=== PATIENT | female | born 1995 | race Caucasian/White ===

== ENCOUNTER 2017-06-14 15:59 | Emergency (ER) | payer OTHER ==
[2017-06-14 18:00] LABS: BILIRUBIN,URINE NEGATIVE (NEGATIVE); PH,URINE 6.5 PH (5.0-7.5); UA CHARGE (STRIP ONLY) YES; UR CULTURE IF IND NOT INDICATED
[2017-06-14 19:00] LABS: HCG UR QUAL NEGATIVE
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
--- NOTE | 2017-06-14 19:28 | XRAY Preliminary Report ---
Exam: XR SHOULDER 3 VIEW LT IMPRESSION: Possible AC joint separation. Symptom localization is recommended. [facility] SITE ID: [id number]
--- NOTE | 2017-06-14 19:30 | XRAY Report ---
EXAM: LEFT SHOULDER RADIOGRAPHY EXAM DATE: 06/14/2017 07:23 PM. CLINICAL HISTORY: C/o pain denies injury. COMPARISON: None. TECHNIQUE: 3 views. FINDINGS: Bones: Normal. No fracture or bone lesion. Joints: Slight elevation of clavicle head relative to the acromion may represent an AC joint separati on. Normal coracoclavicular distance. Anatomic glenohumeral relationship. Soft tissues: The visualized hemithorax is unremarkable. No soft tissue swelling. IMPRESSION: Possible AC joint separation. Symptom localization is recommended. [facility] Referring Provider Line: [phone] SITE ID: [id number]
[2017-06-14] MEDS ORDERED: IBUPROFEN 600 MG TABLET PO STA (20:02)
[2017-06-14] MEDS ORDERED: ACETAMINOPHEN 325 MG TABLET PO STA (20:03)
[2017-06-14] MEDS ORDERED: ACETAMINOPHEN 325 MG TABLET PO ONE (20:27)
[2017-06-14] MEDS ORDERED: IBUPROFEN 600 MG TABLET PO ONE (20:27)
[2017-06-14 20:29] VITALS: BP 116/70
== END 2017-06-14 20:28 | disposition home or self-care (01) ==
LOC: ED 15:59
DX: S43.102A Unspecified dislocation of left acromioclavicular joint, initial encounter (principal); S46.012A Strain of muscle(s) and tendon(s) of the rotator cuff of left shoulder, initial encounter; V89.2XXA Person injured in unspecified motor-vehicle accident, traffic, initial encounter; X50.9XXA Other and unspecified overexertion or strenuous movements or postures, initial encounter; E03.9 Hypothyroidism, unspecified
CPT/HCPCS: 73030; 81003; 81025; 99283; 99284; A9270; 81001; 87086

== ENCOUNTER 2017-08-18 13:16 | Emergency (ER) | payer OTHER ==
--- NOTE | 2017-08-18 14:19 | ED Physician Documentation ---
PD HPI URI - Stated complaint Stated Complaint: EAR PX/CONGESTIONS - Chief complaint Chief Complaint: Heent - History obtained from History obtained from: Patient - History of Present Illness Timing - onset: How many days ago (3) Timing duration: Days (3) Timing details: Gradual onset Pain level max: 4 Pain level now: 3 Associated symptoms: Ear pain (Left ear), Nasal congestion, Rhinorrhea, Sore throat, Dry cough. No: Fever, Chills, Dyspnea, NVD Contributing factors: No: Sick contact Improves by: Rest Worsened by: Activity, Breathing Recently seen: Not recently seen Review of Systems Constitutional: denies: Fever, Chills Nose: reports: Rhinorrhea / runny nose, Congestion GI: denies: Vomiting, Diarrhea : denies: Now EGA PD PAST MEDICAL HISTORY - Past Medical History Past Medical History: Yes Endocrine/Autoimmune: HyPOthyroidism Musculoskeletal: None - Past Surgical History Past Surgical History: Yes - Present Medications Home Medications: Ambulatory Orders Medication Instructions Recorded Confirmed Dexamethasone [Decadron] 4 mg PO DAILY #5 tablet 06/14/17 HYDROcod/ACETAM 5/325 [[place] 5/325] 1 tab PO Q6H PRN #15 tablet 06/14/17 Levothyroxine Sodium [Synthroid] 75 mcg PO DAILY 06/14/17 06/14/17 Naproxen 375 mg PO BID #20 tablet 06/14/17 Azithromycin [Zithromax] 0 mg PO DAILY #6 tablet 08/18/17 Cetirizine HCl/Pseudoephedrine 1 each PO BID PRN #30 tab.er.12h 08/18/17 [Zyrtec-D Tablet] - Allergies Allergies/Adverse Reactions: Allergies Allergy/AdvReac Type Severity Reaction Status Date / Time Penicillins Allergy Unknown Verified 06/14/17 16:06 - Social History Does the pt smoke?: No Smoking Status: Never smoker PD ED PE NORMAL - Vitals Vital signs reviewed: Yes - General General: Alert and oriented X 3, No acute distress - HEENT HEENT: Moist mucous membranes, Other (Right tendon membrane is normal. Left tympanic membrane is dull, bulging with purulent fluid present. Loss of landmarks present. Mild posterior pharyngeal erythema without tonsillar exudates. Uvula midline. Normal phonation. No trismus) - Neck Neck: Supple, no meningeal sign, No adenopathy - Cardiac Cardiac: RRR - Respiratory Respiratory: No respiratory distress, Clear bilaterally - Abdomen Abdomen: Soft, Non tender, Non distended - Back Back: No CVA TTP - Derm Derm: Warm and dry, No rash - Neuro Neuro: Alert and oriented X 3 Results - Vitals Vitals: Oxygen O2 Source Room air PD MEDICAL DECISION MAKING - ED course Complexity details: considered differential, d/w patient ED course: Patient is a 21-year-old female presents to the emergency department what appears to be a viral syndrome complicated by left acute otitis media. Will place on antibiotics for home and follow-up with her doctor. She is very well- appearing, nontoxic. No evidence of sepsis or pneumonia. Patient counseled regarding signs and symptoms for which I believe and urgent re-evaluation would be necessary. Patient with good understanding of and agreement to plan and is comfortable going home at this time This document was made in part using voice recognition software. While efforts are made to proofread this document, sound alike and grammatical errors may occur. Departure - Departure Disposition: 01 Home, Self Care Clinical Impression: Viral URI Otitis media Qualifiers: Otitis media type: suppurative Chronicity: acute Laterality: left Recurrence: not specified as recurrent Spontaneous tympanic membrane rupture: without spontaneous rupture Qualified Code(s): H66.002 - Acute suppurative otitis media without spontaneous rupture of ear drum, left ear Condition: Good Instructions: ED Otitis Media Acute Adult, ED Viral Syndrome Follow-Up: your,doctor in 1 week [Other] Prescriptions: Azithromycin [Zithromax] 0 mg PO DAILY #6 tablet Cetirizine HCl/Pseudoephedrine [Zyrtec-D Tablet] 1 each PO BID PRN #30 tab.er.12h PRN Reason: Nasal Congestion Comments: Drink plenty of fluids and rest. Return if you worsen. Discharge Date/Time: 08/18/17 14:27
[2017-08-18 14:28] VITALS: BP 124/78
== END 2017-08-18 14:27 | disposition home or self-care (01) ==
LOC: ED 13:16
DX: J06.9 Acute upper respiratory infection, unspecified (principal); B97.89 Other viral agents as the cause of diseases classified elsewhere; H66.002 Acute suppurative otitis media without spontaneous rupture of ear drum, left ear; E03.9 Hypothyroidism, unspecified
CPT/HCPCS: 99283

== ENCOUNTER 2017-08-22 19:14 | Emergency (ER) | payer OTHER ==
--- NOTE | 2017-08-22 20:36 | ED Physician Documentation ---
PD HPI HEENT - Stated complaint Stated Complaint: HEADACHE,L SIDE JAW PAIN - Chief complaint Chief Complaint: Heent - History obtained from History obtained from: Patient - History of Present Illness Timing - onset: How many days ago (few) Timing - duration: Days Timing - details: Gradual onset, Still present, Waxing and waning Location: Left ear, Other (side of face) Worsens: Swalllowing Associated symptoms: Swollen nodes, Headache. No: Fever, Congestion, Rhinorrhea , Unable to swallow, Facial swelling Similar symptoms before: Has not had sx before Recently seen: Not recently seen Review of Systems Constitutional: denies: Fever, Chills, Myalgias Ears: reports: Ear pain. denies: Drainage/discharge Nose: reports: Rhinorrhea / runny nose. denies: Congestion Throat: denies: Sore throat Respiratory: denies: Cough GI: reports: Nausea. 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 : None HEENT: None Psych: None Musculoskeletal: None Derm: None - Past Surgical History Past Surgical History: Yes - Present Medications Home Medications: Ambulatory Orders Medication Instructions Recorded Confirmed Dexamethasone [Decadron] 4 mg PO DAILY #5 tablet 06/14/17 HYDROcod/ACETAM 5/325 [[place] 5/325] 1 tab PO Q6H PRN #15 tablet 06/14/17 Levothyroxine Sodium [Synthroid] 75 mcg PO DAILY 06/14/17 06/14/17 Naproxen 375 mg PO BID #20 tablet 06/14/17 Azithromycin [Zithromax] 0 mg PO DAILY #6 tablet 08/18/17 Cetirizine HCl/Pseudoephedrine 1 each PO BID PRN #30 tab.er.12h 08/18/17 [Zyrtec-D Tablet] Cephalexin [Keflex] 500 mg PO TID #21 capsule 08/22/17 Dexamethasone [Decadron] 4 mg PO DAILY #5 tablet 08/22/17 HYDROcod/ACETAM 5/325 [[place] 5/325] 1 tab PO Q6H PRN #15 tablet 08/22/17 Naproxen 375 mg PO BID #20 tablet 08/22/17 - Allergies Allergies/Adverse Reactions: Allergies Allergy/AdvReac Type Severity Reaction Status Date / Time Penicillins Allergy Unknown Verified 08/22/17 19:22 - Social History Does the pt smoke?: No Smoking Status: Never smoker Does the pt drink ETOH?: Yes Does the pt have substance abuse?: No - Immunizations Immunizations are current?: Yes - POLST Patient has POLST: No PD ED PE NORMAL - Vitals Vital signs reviewed: Yes - General General: Alert and oriented X 3, Well developed/nourished, Other (appears in pain.) - HEENT HEENT: Pharynx benign. No: Ears normal (right is okay; left with redness.) - Neck Neck: Supple, no meningeal sign, Other (left ant node.) - Cardiac Cardiac: RRR, No murmur - Respiratory Respiratory: Clear bilaterally Results - Vitals Vitals: Oxygen O2 Source Room air PD MEDICAL DECISION MAKING - ED course Complexity details: considered differential (ear infection. no rash nor sores in face/periauricular.), d/w patient Departure - Departure Disposition: 01 Home, Self Care Clinical Impression: Otitis media Qualifiers: Otitis media type: suppurative Chronicity: acute Laterality: left Recurrence: recurrent Spontaneous tympanic membrane rupture: without spontaneous rupture Qualified Code(s): H66.005 - Acute suppurative otitis media without spontaneous rupture of ear drum, recurrent, left ear Headache Qualifiers: Headache type: unspecified Headache chronicity pattern: acute headache Intractability: not intractable Qualified Code(s): R51 - Headache Condition: Stable Record reviewed to determine appropriate education?: Yes Instructions: ED Cephalgia Unspecified, ED Otitis Media Acute Adult Follow-Up: [facility] [Provider Group] Prescriptions: Cephalexin [Keflex] 500 mg PO TID #21 capsule Dexamethasone [Decadron] 4 mg PO DAILY #5 tablet HYDROcod/ACETAM 5/325 [[place] 5/325] 1 tab PO Q6H PRN #15 tablet PRN Reason: Pain Naproxen 375 mg PO BID #20 tablet Comments: The ear infection is still present I presume this given you the left-sided pain and pain down into the jaw. He may be having the migraine type headache or just sinus headache from the illness given you the general headache. I do not get the sense that you have severe process such as meningitis or such. Use Decadron daily for the next 5 days for inflammation. He is a different antibiotic cephalexin 3 times a day for the next week. Add an anti- inflammatory naproxen twice daily and then Tylenol or hydrocodone if needed for worse pain. Recheck if not improving over the next 2-3 days. Discharge Date/Time: 08/22/17 21:08
[2017-08-22] MEDS ORDERED: DEXAMETHASONE 10 MG/ML VIAL PO STA (20:47)
[2017-08-22] MEDS ORDERED: HYDROcod/ACETAM 5/325 MG TABLET PO STA (20:47)
[2017-08-22] MEDS ORDERED: HYDROcod/ACET 5/325 Prepack 6 PO STA (20:47)
[2017-08-22] MEDS ORDERED: cephALEXin 250 MG CAPSULE PO STA (20:47)
[2017-08-22 21:13] VITALS: BP 127/80
== END 2017-08-22 21:08 | disposition home or self-care (01) ==
LOC: ED 19:14
DX: H66.005 Acute suppurative otitis media without spontaneous rupture of ear drum, recurrent, left ear (principal); R51 Headache; G30.9 Alzheimer's disease, unspecified; F02.80 Dementia in other diseases classified elsewhere, unspecified severity, without behavioral disturbance, psychotic disturbance, mood disturbance, and anxiety; E03.9 Hypothyroidism, unspecified
CPT/HCPCS: 99283; A9270

== ENCOUNTER 2017-11-06 22:33 | Emergency (ER) | payer OTHER ==
[2017-11-06] MEDS ORDERED: SODIUM CHLORIDE 0.9% 1,000 ML IV ONE (23:07)
[2017-11-06 23:56] LABS: BILIRUBIN,URINE NEGATIVE (NEGATIVE); GLUCOSE, URINE (UA) NEGATIVE (NEGATIVE); KETONES,URINE (UA) NEGATIVE (NEGATIVE); LEUKOCYTE ESTERASE, URINE NEGATIVE (NEGATIVE); NITRITE,URINE NEGATIVE (NEGATIVE); OCCULT BLOOD,URINE LARGE (NEGATIVE); PH,URINE 6.5 PH (5.0-7.5); PROTEIN,URINE NEGATIVE (NEGATIVE); UROBILINOGEN,URINE 0.2 (NORMAL) E.U./dL (NORMAL)
[2017-11-07 00:05] LABS: CLARITY,URINE CLOUDY (CLEAR)
[2017-11-07 00:08] LABS: BACTERIA,URINE None Seen /HPF (None Seen); HCG UR QUAL NEGATIVE; RBC,URINE TNTC /HPF (0-5); SQUAMOUS EPITHELIAL CELL,UR FEW Squamous (<= Few)
--- NOTE | 2017-11-07 01:06 | ED Physician Documentation ---
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 Her bleeding is heavier than a normal menstrual period, soaking as many as 1 pad every 1-2 hours. She has had few associated blood clots. She is concerned about the possibility of because her last period was extremely light compared to usual. She is sexually active and does not use control. She had an IUD until it was removed last fall. She denies fever, dysuria, nausea or vomiting. Review of Systems Constitutional: denies: Fever Nose: denies: Congestion Cardiac: denies: Chest pain / pressure Respiratory: denies: Dyspnea, Cough GI: denies: Abdominal Pain, Nausea, Vomiting : reports: LMP (1 month ago, extremely light compared to usual.), Vaginal bleeding. 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 : None HEENT: None Psych: None Musculoskeletal: None Derm: None - Past Surgical History Past Surgical History: No - Present Medications Home Medications: Ambulatory Orders Medication Instructions Recorded Confirmed Levothyroxine Sodium [Synthroid] 75 mcg PO DAILY 06/14/17 06/14/17 - Allergies Allergies/Adverse Reactions: Allergies Allergy/AdvReac Type Severity Reaction Status Date / Time Penicillins Allergy Unknown Verified 08/22/17 19:22 - Social History Does the pt smoke?: No Smoking Status: Never smoker Does the pt drink ETOH?: Yes Does the pt have substance abuse?: No - Immunizations Immunizations are current?: Yes - POLST Patient has POLST: No PD ED PE NORMAL - Vitals Vital signs reviewed: Yes (Mild hypertension initially.) - General General: Alert and oriented X 3, Well developed/nourished - Cardiac Cardiac: RRR - Respiratory Respiratory: No respiratory distress, Clear bilaterally - Abdomen Abdomen: Soft, Non tender - Back Back: No CVA TTP - Derm Derm: No rash - Extremities Extremities: No edema, No calf tenderness / cord - Neuro Neuro: Alert and oriented X 3, No motor deficit, Normal speech Results - Vitals Vitals: Vital Signs - 24 hr 11/06/17 11/07/17 22:38 01:14 Temperature 36.1 C L Heart Rate 77 72 Respiratory 16 16 Rate Blood Pressure 138/85 H 129/74 O2 Saturation 99 99 Oxygen O2 Source Room air - Labs Labs: Laboratory Tests 11/06/17 11/06/17 23:52 23:52 Urine Color YELLOW Urine Clarity CLOUDY Urine pH 6.5 Ur Specific [place] 1.025 1.025 Urine Protein NEGATIVE Urine Glucose (UA) NEGATIVE Urine Ketones NEGATIVE Urine Occult Blood LARGE H Urine Nitrite NEGATIVE Urine Bilirubin NEGATIVE Urine Urobilinogen 0.2 (NORMAL) Ur Leukocyte Esterase NEGATIVE Urine RBC TNTC H Urine WBC 0-3 Ur Squamous Epith Cells FEW Squamous Urine Bacteria None Seen Ur Microscopic Review INDICATED Urine Culture Comments NOT INDICATED Urine HCG, Qual NEGATIVE PD MEDICAL DECISION MAKING - ED course Complexity details: reviewed results, re-evaluated patient, considered differential, d/w patient ED course: The patient's presentation is most consistent with a heavy normal menstrual period. The unlikely that she has an ectopic . I discussed with her the results of the test, symptomatic treatment and outpatient follow-up, as well as potentially worrisome signs or symptoms that should prompt reevaluation in the emergency department. Departure - Departure Disposition: 01 Home, Self Care Clinical Impression: Heavy menstrual bleeding Qualifiers: Menorrahagia type: with regular cycle Qualified Code(s): N92.0 - Excessive and frequent menstruation with regular cycle Instructions: ED Bleeding Menstrual Heavy Follow-Up: [facility] [Provider Group] Comments: You can use Tylenol or ibuprofen if needed for menstrual cramping pain. Drink plenty of fluids. Follow up with your primary physician within 2 weeks. Call to schedule appointment. Return to the emergency department if you develop increasing pain, increasing bleeding, or otherwise worsening symptoms. Discharge Date/Time: 11/07/17 01:15
[2017-11-07 01:15] VITALS: BP 129/74
== END 2017-11-07 01:15 | disposition home or self-care (01) ==
LOC: ED 22:33
DX: N92.0 Excessive and frequent menstruation with regular cycle (principal)
CPT/HCPCS: 81001; 81003; 81025; 87086; 96360; 99283

== ENCOUNTER 2018-02-16 11:36 | Emergency (ER) | payer OTHER ==
--- NOTE | 2018-02-16 11:52 | ED Physician Documentation ---
PD HPI FEMALE - Stated complaint Stated Complaint: FEM - Chief complaint Chief Complaint: UTI - History obtained from History obtained from: Patient - History of Present Illness Timing - onset: Yesterday Timing - duration: Days (2) Timing - details: Abrupt onset, Still present Associated symptoms: Dysuria, Urinary frequency. No: Fever, Vaginal discharge, Genital sore/lesion, Hematuria Contributing factors: Sexually active, Other (Novaring). No: Exposed to STD Similar symptoms before: Diagnosis (UTI) Recently seen: Not recently seen Review of Systems Constitutional: denies: Fever, Chills, Myalgias Nose: denies: Rhinorrhea / runny nose, Congestion Throat: denies: Sore throat Respiratory: denies: Cough : reports: Dysuria, Frequency, Irregular menses (due to Novaring). denies: Hematuria, Discharge Skin: denies: Rash PD PAST MEDICAL HISTORY - Past Medical History Cardiovascular: None Respiratory: None Endocrine/Autoimmune: HyPOthyroidism GI: None [employer] SALES: None : None HEENT: None Psych: None Musculoskeletal: None Derm: None - Past Surgical History Past Surgical History: No - Present Medications Home Medications: Ambulatory Orders Medication Instructions Recorded Confirmed Levothyroxine Sodium [Synthroid] 75 mcg PO DAILY 06/14/17 06/14/17 Phenazopyridine [Pyridium] 100 mg PO TID PRN #15 tablet 02/16/18 Sulfamethox/Trimeth 800/160 1 each PO BID #14 tablet 02/16/18 [Bactrim Ds 800/160] - Allergies Allergies/Adverse Reactions: Allergies Allergy/AdvReac Type Severity Reaction Status Date / Time Penicillins Allergy Unknown Verified 08/22/17 19:22 - Social History Does the pt smoke?: No Smoking Status: Never smoker Does the pt drink ETOH?: Yes Does the pt have substance abuse?: No - Immunizations Immunizations are current?: Yes - POLST Patient has POLST: No PD ED PE NORMAL - Vitals Vital signs reviewed: Yes - General General: Alert and oriented X 3, No acute distress, Well developed/nourished - HEENT HEENT: Pharynx benign - Neck Neck: Supple, no meningeal sign, No adenopathy - Abdomen Abdomen: Soft, Non tender - Female Female : Deferred (talked with her about possible vaginitis giving symptoms, and she prefers treating as UTI initially, pending culture results and see if improved with abx. ) - Back Back: No CVA TTP Results - Vitals Vitals: Vital Signs - 24 hr 02/16/18 02/16/18 11:43 12:48 Temperature 36.5 C 36.6 C Heart Rate 87 91 Respiratory 18 18 Rate Blood Pressure 128/65 122/80 O2 Saturation 96 97 Oxygen O2 Source Room air - Labs Labs: Laboratory Tests 02/16/18 11:51 Urine Color YELLOW Urine Clarity HAZY Urine pH 6.0 Ur Specific [place] 1.025 Urine Protein NEGATIVE Urine Glucose (UA) NEGATIVE Urine Ketones NEGATIVE Urine Occult Blood SMALL H Urine Nitrite NEGATIVE Urine Bilirubin NEGATIVE Urine Urobilinogen 0.2 (NORMAL) Ur Leukocyte Esterase TRACE H Urine RBC 0-5 Urine WBC 11-25 H Ur Squamous Epith Cells FEW Squamous Urine Bacteria Few Urine Mucus Moderate Strands Ur Microscopic Review INDICATED Urine Culture Comments INDICATED Urine HCG, Qual NEGATIVE PD MEDICAL DECISION MAKING - ED course Complexity details: reviewed results (suspicious for UTI but not overtly convincing. Discussed possible pelvic exam with patient and will treat as UTI pending cultures. ), considered differential, d/w patient - Sepsis Event Vital Signs: Vital Signs - 24 hr 02/16/18 02/16/18 11:43 12:48 Temperature 36.5 C 36.6 C Heart Rate 87 91 Respiratory 18 18 Rate Blood Pressure 128/65 122/80 O2 Saturation 96 97 Oxygen O2 Source Room air Departure - Departure Disposition: 01 Home, Self Care Clinical Impression: Dysuria Urinary tract infection Qualifiers: Urinary tract infection type: acute cystitis Hematuria presence: without hematuria Qualified Code(s): N30.00 - Acute cystitis without hematuria Condition: Stable Record reviewed to determine appropriate education?: Yes Instructions: ED UTI Cystitis Female Follow-Up: DIONICIO GALLO PA-C [Primary Care Provider] - Prescriptions: Phenazopyridine [Pyridium] 100 mg PO TID PRN #15 tablet PRN Reason: Pain Sulfamethox/Trimeth 800/160 [Bactrim Ds 800/160] 1 each PO BID #14 tablet Comments: Drink lots of fluids. Naproxen or ibuprofen if needed for pain and inflammation. Add Tylenol if needed for discomfort. Phenazopyridine will help with the discomfort of urination (will turn her urine a little orange colored so not to worry). Bactrim antibiotic twice daily for a week for presumed bladder infection. Recheck if not improving over the next 2-3 days or if not fully resolved by the week. Other potential causes can be vaginitis. Discharge Date/Time: 02/16/18 13:00
[2018-02-16 12:06] LABS: BILIRUBIN,URINE NEGATIVE (NEGATIVE); GLUCOSE, URINE (UA) NEGATIVE (NEGATIVE); KETONES,URINE (UA) NEGATIVE (NEGATIVE); LEUKOCYTE ESTERASE, URINE TRACE (NEGATIVE); NITRITE,URINE NEGATIVE (NEGATIVE); OCCULT BLOOD,URINE SMALL (NEGATIVE); PROTEIN,URINE NEGATIVE (NEGATIVE); UROBILINOGEN,URINE 0.2 (NORMAL) E.U./dL (NORMAL)
[2018-02-16 12:16] LABS: CLARITY,URINE HAZY (CLEAR); HCG UR QUAL NEGATIVE
[2018-02-16] MEDS ORDERED: IBUPROFEN 600 MG TABLET PO STA (12:17)
[2018-02-16] MEDS ORDERED: PHENAZOPYRIDINE 100 MG TABLET PO STA (12:17)
[2018-02-16 12:31] LABS: BACTERIA,URINE Few /HPF (None Seen); MUCUS,URINE Moderate Strands; RBC,URINE 0-5 /HPF (0-5); SQUAMOUS EPITHELIAL CELL,UR FEW Squamous (<= Few)
[2018-02-16 12:49] VITALS: BP 122/80
== END 2018-02-16 13:00 | disposition home or self-care (01) ==
LOC: ED 11:36
DX: N30.00 Acute cystitis without hematuria (principal); E03.9 Hypothyroidism, unspecified
CPT/HCPCS: 81001; 81025; 87086; 87181; 99283; A9270; 81003

== ENCOUNTER 2019-12-30 00:43 | Emergency (ER) | payer OTHER ==
--- NOTE | 2019-12-30 00:56 | ED Physician Documentation ---
PD HPI FEMALE - Stated complaint Stated Complaint: F - Chief complaint Chief Complaint: UTI - History obtained from History obtained from: Patient - History of Present Illness Timing - onset: How many days ago (2) Timing - duration: Days (2) Timing - details: Gradual onset, Still present Associated symptoms: Dysuria, Urinary frequency. No: Fever, Pelvic pain, Vaginal bleeding, Vaginal discharge, Genital sore/lesion, Hematuria Contributing factors: No: , Exposed to STD Similar symptoms before: Diagnosis (UTI) Recently seen: Not recently seen Review of Systems Constitutional: denies: Fever, Chills GI: denies: Nausea, Vomiting : reports: Dysuria, Frequency, LMP (just ending). denies: Incontinent, Discharge, Vaginal bleeding, Missed period Skin: denies: Rash, Lesions PD PAST MEDICAL HISTORY - Past Medical History Cardiovascular: None Respiratory: None Endocrine/Autoimmune: HyPOthyroidism GI: None DIE TESTER: None : None HEENT: None Psych: None Musculoskeletal: None Derm: None - Past Surgical History Past Surgical History: No - Present Medications Home Medications: Ambulatory Orders Medication Instructions Recorded Confirmed Levothyroxine Sodium [Synthroid] 75 mcg PO DAILY 06/14/17 06/14/17 Phenazopyridine [Pyridium] 100 mg PO TID PRN #15 tablet 02/16/18 Sulfamethox/Trimeth 800/160 1 each PO BID #14 tablet 02/16/18 [Bactrim Ds 800/160] Naproxen 375 mg PO BID #15 tablet 12/30/19 Phenazopyridine HCl [Pyridium] 100 mg PO TID PRN #15 tablet 12/30/19 Sulfamethox/Trimeth 800/160 1 each PO BID #10 tablet 12/30/19 [Bactrim Ds 800/160] - Allergies Allergies/Adverse Reactions: Allergies Allergy/AdvReac Type Severity Reaction Status Date / Time Penicillins Allergy Unknown Verified 12/30/19 00:54 - Social History Does the pt smoke?: No Smoking Status: Never smoker Does the pt drink ETOH?: Yes Does the pt have substance abuse?: No - Immunizations Immunizations are current?: Yes - POLST Patient has POLST: No PD ED PE NORMAL - Vitals Vital signs reviewed: Yes - General General: Alert and oriented X 3, No acute distress, Well developed/nourished - Abdomen Abdomen: Soft, Non tender - Female Female : Home Health Clinical Liaison present (nurse Олег), Other (some mild menstrual blood in vault. No vaginal irritation nor discharge. Introitus and periurethral area normal appearance. ) - Rectal Rectal: Deferred - Back Back: No CVA TTP Results - Vitals Vitals: Vital Signs - 24 hr 12/30/19 12/30/19 00:45 01:54 Temperature 35.5 C L Heart Rate 61 73 Respiratory 16 18 Rate Blood Pressure 126/72 128/72 O2 Saturation 99 98 Oxygen O2 Source Room air - Labs Labs: Laboratory Tests 12/30/19 12/30/19 00:52 00:52 Urine Color YELLOW Urine Clarity CLEAR Urine pH 6.5 Ur Specific [place] >=1.030 H >=1.030 H Urine Protein TRACE Urine Glucose (UA) NEGATIVE Urine Ketones NEGATIVE Urine Occult Blood NEGATIVE Urine Nitrite NEGATIVE Urine Bilirubin NEGATIVE Urine Urobilinogen 0.2 (NORMAL) Ur Leukocyte Esterase NEGATIVE Ur Microscopic Review NOT INDICATED Urine Culture Comments NOT INDICATED Urine HCG, Qual NEGATIVE PD MEDICAL DECISION MAKING - ED course Complexity details: re-evaluated patient (given her symptoms sounding like UTI, and normal appearing pelvic exam, will treat empirically for UTI pending the PCR tests. ), considered differential (Sounds like UTI. However the UA was very normal. Consider then vaginitis or interstitial cystitis. Does not have abd pain nor tenderness, so unlikely ovarian/etc. ), d/w patient Departure - Departure Disposition: 01 Home, Self Care Clinical Impression: Dysuria Condition: Stable Record reviewed to determine appropriate education?: Yes Instructions: ED Urethritis Infec Vs Inflam Fem Follow-Up: [facility] [Provider Group] Prescriptions: Sulfamethox/Trimeth 800/160 [Bactrim Ds 800/160] 1 each PO BID #10 tablet Naproxen 375 mg PO BID #15 tablet Phenazopyridine HCl [Pyridium] 100 mg PO TID PRN #15 tablet PRN Reason: Abdominal Pain Comments: Your urine test appears normal though that does not exclude a urethritis/cystitis (urinary tract infection). Your vaginal exam appears normal as well. We did do some culture swabs that would look for signs of bacterial vaginitis or other vaginal infection. These will result in a day or 2 and will call you if positive as that would direct and need for changing antibiotics. Otherwise we will treat with medication to numb the bladder and urethra to decrease symptoms as well as anti-inflammatory and antibiotic. This would cover inflammatory and infectious causes for the urinary tract infection. Recheck if not improved over the next 2 to 3 days and return sooner if worsening. Discharge Date/Time: 12/30/19 02:01
[2019-12-30 00:59] LABS: BILIRUBIN,URINE NEGATIVE (NEGATIVE); GLUCOSE, URINE (UA) NEGATIVE (NEGATIVE); KETONES,URINE (UA) NEGATIVE (NEGATIVE); LEUKOCYTE ESTERASE, URINE NEGATIVE (NEGATIVE); NITRITE,URINE NEGATIVE (NEGATIVE); OCCULT BLOOD,URINE NEGATIVE (NEGATIVE); PH,URINE 6.5 PH (5.0-7.5); PROTEIN,URINE TRACE mg/dL (NEGATIVE); UROBILINOGEN,URINE 0.2 (NORMAL) E.U./dL (NORMAL)
[2019-12-30 01:00] LABS: CLARITY,URINE CLEAR (CLEAR)
[2019-12-30 01:02] LABS: HCG UR QUAL NEGATIVE
[2019-12-30] MEDS ORDERED: PHENAZOPYRIDINE 100 MG TABLET PO STA (01:43)
[2019-12-30] MEDS ORDERED: SULFAMETH/TRIMETH DS 800/160 MG TABLET PO STA (01:43)
[2019-12-30 01:55] VITALS: BP 128/72
[2019-12-30 03:40] LABS: CANDIDA GROUP DNA NEGATIVE (NEGATIVE); CANDIDA KRUSEI DNA NEGATIVE (NEGATIVE); TRICHOMONAS VAGINALIS DNA NEGATIVE (NEGATIVE)
[2019-12-30 21:34] LABS: TRICHOMONAS VAGINALIS DNA NEGATIVE (NEGATIVE)
== END 2019-12-30 02:01 | disposition home or self-care (01) ==
LOC: ED 00:43
DX: R30.0 Dysuria (principal); R35.0 Frequency of micturition
CPT/HCPCS: 81003; 81025; 87481; 87491; 87591; 87661; 87801; 99283; A9270; 81001; 87086

== ENCOUNTER 2020-02-21 22:07 | Emergency (ER) | payer OTHER ==
--- NOTE | 2020-02-21 22:49 | ED Physician Documentation ---
History of Present Illness - Stated complaint Stated Complaint: DIZZINESS,DISORIENTATION,NAUSEA - Chief complaint Chief Complaint: Neuro - History obtained from History obtained from: Patient - History of Present Illness Timing: Today Pain level max: 0 Pain level now: 0 Improved by: rest, lying down Worsened by: standing - Additonal information Additional information: c/o "on and off dizziness all day" with episodic lightheadedness, visual changes, "brain fog", head "pressure". She denies meredith headache; these episodes have been associated with standing up after having been seated or lying down. Review of Systems Constitutional: denies: Fever, Chills, Myalgias, Fatigue, Sweats Eyes: reports: Other (episodes of difficulty focusing). denies: Loss of vision, Decreased vision, Photophobia Cardiac: reports: Reviewed and negative Respiratory: reports: Reviewed and negative GI: reports: Reviewed and negative : denies: Dysuria, Frequency, Now EGA Neurologic: reports: Generalized weakness. denies: Focal weakness, Numbness, Headache PD PAST MEDICAL HISTORY - Past Medical History Cardiovascular: None Respiratory: None Endocrine/Autoimmune: HyPOthyroidism GI: None NECKTIE TURNER: None : None HEENT: None Psych: None Musculoskeletal: None Derm: None - Past Surgical History Past Surgical History: No - Present Medications Home Medications: Ambulatory Orders Medication Instructions Recorded Confirmed Levothyroxine Sodium [Synthroid] 75 mcg PO DAILY 06/14/17 06/14/17 Phenazopyridine [Pyridium] 100 mg PO TID PRN #15 tablet 02/16/18 Sulfamethox/Trimeth 800/160 1 each PO BID #14 tablet 02/16/18 [Bactrim Ds 800/160] Naproxen 375 mg PO BID #15 tablet 12/30/19 Phenazopyridine HCl [Pyridium] 100 mg PO TID PRN #15 tablet 12/30/19 Sulfamethox/Trimeth 800/160 1 each PO BID #10 tablet 12/30/19 [Bactrim Ds 800/160] Levothyroxine Sodium [Synthroid] 50 mcg PO DAILY #30 tablet 02/22/20 - Allergies Allergies/Adverse Reactions: Allergies Allergy/AdvReac Type Severity Reaction Status Date / Time Penicillins Allergy Unknown Verified 02/21/20 22:12 - Social History Does the pt smoke?: No Smoking Status: Never smoker Does the pt drink ETOH?: Yes Does the pt have substance abuse?: No - Immunizations Immunizations are current?: Yes - POLST Patient has POLST: No PD ED PE NORMAL - Vitals Vital signs reviewed: Yes - General General: Alert and oriented X 3, No acute distress, Well developed/nourished - HEENT HEENT: PERRL, EOMI, Moist mucous membranes - Neck Neck: Supple, no meningeal sign - Cardiac Cardiac: RRR, No murmur, No gallop, No rub - Respiratory Respiratory: No respiratory distress, Clear bilaterally - Abdomen Abdomen: Soft, Non tender - Back Back: No CVA TTP - Derm Derm: Normal color, Warm and dry - Neuro Neuro: Alert and oriented X 3, 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, No motor deficit, No sensory def icit, Normal speech Eye Opening: Spontaneous Motor: Obeys Commands Verbal: Oriented GCS Score: 15 Results - Vitals Vitals: Vital Signs - 24 hr 02/21/20 02/22/20 02/22/20 22:12 00:30 01:43 Temperature 37.0 C Heart Rate 82 73 Heart Rate [ 80 Sitting] Heart Rate [ 83 Standing] Heart Rate [ 75 Supine] Respiratory 16 14 Rate Blood Pressure 126/73 122/69 Blood Pressure 121/79 [Sitting] Blood Pressure 112/90 H [Standing] Blood Pressure 116/71 [Supine] O2 Saturation 98 99 02/22/20 02:05 Temperature 36.7 C Heart Rate 75 Heart Rate [ Sitting] Heart Rate [ Standing] Heart Rate [ Supine] Respiratory 14 Rate Blood Pressure 128/81 H Blood Pressure [Sitting] Blood Pressure [Standing] Blood Pressure [Supine] O2 Saturation 100 Oxygen O2 Source Room air - Labs Labs: Laboratory Tests 02/21/20 02/21/20 02/21/20 23:15 23:15 23:15 WBC 10.5 RBC 3.77 L Hgb 10.6 L Hct 33.6 L MCV 89.1 MCH 28.1 MCHC 31.5 L RDW 14.0 Plt Count 309 MPV 10.9 H Neut # (Auto) 6.4 Lymph # (Auto) 2.8 Sharp # (Auto) 0.8 Eos # (Auto) 0.4 Baso # (Auto) 0.1 Absolute Nucleated RBC 0.00 Nucleated RBC % 0.0 Sodium 137 Potassium 3.7 Chloride 106 Carbon Dioxide 25 Anion Gap 6.0 BUN 19 Creatinine 0.5 Estimated GFR (MDRD) 150 Glucose 106 H Calcium 8.8 Total Bilirubin 0.5 AST 18 ALT 26 Alkaline Phosphatase 65 Total Protein 7.3 Albumin 4.0 Globulin 3.3 Albumin/Globulin Ratio 1.2 Lipase 34 TSH 12.69 H Urine Color Urine Clarity Urine pH Ur Specific [place] Urine Protein Urine Glucose (UA) Urine Ketones Urine Occult Blood Urine Nitrite Urine Bilirubin Urine Urobilinogen Ur Leukocyte Esterase Urine RBC Urine WBC Ur Squamous Epith Cells Urine Bacteria Ur Microscopic Review Urine Culture Comments Urine HCG, Qual 02/22/20 01:00 WBC RBC Hgb Hct MCV MCH MCHC RDW Plt Count MPV Neut # (Auto) Lymph # (Auto) Sharp # (Auto) Eos # (Auto) Baso # (Auto) Absolute Nucleated RBC Nucleated RBC % Sodium Potassium Chloride Carbon Dioxide Anion Gap BUN Creatinine Estimated GFR (MDRD) Glucose Calcium Total Bilirubin AST ALT Alkaline Phosphatase Total Protein Albumin Globulin Albumin/Globulin Ratio Lipase TSH Urine Color YELLOW Urine Clarity CLEAR Urine pH 7.0 Ur Specific [place] 1.015 Urine Protein NEGATIVE Urine Glucose (UA) NEGATIVE Urine Ketones NEGATIVE Urine Occult Blood LARGE H Urine Nitrite NEGATIVE Urine Bilirubin NEGATIVE Urine Urobilinogen 0.2 (NORMAL) Ur Leukocyte Esterase NEGATIVE Urine RBC TNTC H Urine WBC 0-3 Ur Squamous Epith Cells RARE Squamous Urine Bacteria None Seen Ur Microscopic Review INDICATED Urine Culture Comments NOT INDICATED Urine HCG, Qual NEGATIVE PD MEDICAL DECISION MAKING - ED course Complexity details: reviewed results, re-evaluated patient, considered differential, d/w patient Departure - Departure Disposition: 01 Home, Self Care Clinical Impression: Dizziness, Hypothyroidism Condition: Good Instructions: ED Dizziness UKO, ED Hypothyroidism, ED Near Syncope Unkn Follow-Up: [facility] [Provider Group] Prescriptions: Levothyroxine Sodium [Synthroid] 50 mcg PO DAILY #30 tablet Discharge Date/Time: 02/22/20 02:07
[2020-02-21] MEDS ORDERED: SODIUM CHLORIDE 0.9% 1,000 ML IV STA (23:08)
[2020-02-21 23:26] LABS: BASOPHILS # (AUTO) 0.1 10^3/uL (0.0-0.1); BASOPHILS % (AUTO) 0.9 %; EOSINOPHILS # (AUTO) 0.4 10^3/uL (0.0-0.7); EOSINOPHILS % (AUTO) 3.4 %; HGB - HEMOGLOBIN 10.6 g/dL (12.0-16.0); LYMPHOCYTES # (AUTO) 2.8 10^3/uL (1.5-3.5); LYMPHOCYTES % (AUTO) 27.1 %; MEAN CORPUSCULAR HEMOGLOBIN 28.1 pg (27.0-31.0); MEAN CORPUSCULAR HGB CONC 31.5 g/dL (32.0-36.0); MEAN CORPUSCULAR VOLUME 89.1 fL (81.0-99.0); MEAN PLATELET VOLUME 10.9 fL (7.9-10.8); MONOCYTES # (AUTO) 0.8 10^3/uL (0.0-1.0); MONOCYTES % (AUTO) 7.4 %; NEUTROPHILS # (AUTO) 6.4 10^3/uL (1.5-6.6); NEUTROPHILS % (AUTO) 60.8 %; PLT - PLATELET COUNT 309 10^3/uL (130-450); RED BLOOD COUNT 3.77 10^6/uL (4.20-5.40); WHITE BLOOD COUNT 10.5 x10^3/uL (4.8-10.8)
[2020-02-21 23:39] LABS: ALBUMIN/GLOBULIN RATIO 1.2 (1.0-2.2); BILIRUBIN,TOTAL 0.5 mg/dL (0.2-1.0); CALCIUM 8.8 mg/dL (8.5-10.3); CREATININE 0.5 mg/dL (0.4-1.0); TOTAL PROTEIN 7.3 g/dL (6.7-8.2)
[2020-02-22 01:32] LABS: BILIRUBIN,URINE NEGATIVE (NEGATIVE); GLUCOSE, URINE (UA) NEGATIVE (NEGATIVE); KETONES,URINE (UA) NEGATIVE (NEGATIVE); LEUKOCYTE ESTERASE, URINE NEGATIVE (NEGATIVE); NITRITE,URINE NEGATIVE (NEGATIVE); OCCULT BLOOD,URINE LARGE (NEGATIVE); PROTEIN,URINE NEGATIVE (NEGATIVE); UROBILINOGEN,URINE 0.2 (NORMAL) E.U./dL (NORMAL)
[2020-02-22 01:44] LABS: BACTERIA,URINE None Seen /HPF (None Seen); CLARITY,URINE CLEAR (CLEAR); HCG UR QUAL NEGATIVE; RBC,URINE TNTC /HPF (0-5); SQUAMOUS EPITHELIAL CELL,UR RARE Squamous (<= Few)
[2020-02-22 02:06] VITALS: BP 128/81
== END 2020-02-22 02:07 | disposition home or self-care (01) ==
LOC: ED 22:07
DX: R42 Dizziness and giddiness (principal); E03.9 Hypothyroidism, unspecified
CPT/HCPCS: 36415; 80053; 81001; 81003; 81025; 83690; 84443; 85025; 87086; 96360; 99284

== ENCOUNTER 2024-03-01 12:16 | Outpatient (CLI) | payer OTHER ==
[2024-03-01 12:52] LABS: MEAN CORPUSCULAR HEMOGLOBIN 27.2 pg (27.0-31.0); MEAN CORPUSCULAR HGB CONC 32.4 g/dL (32.0-36.0); MEAN CORPUSCULAR VOLUME 84.2 fL (81.0-99.0); MEAN PLATELET VOLUME 11.4 fL (7.9-10.8); RED BLOOD COUNT 4.04 10^6/uL (4.20-5.40); RED CELL DISTRIBUTION WIDTH 14.5 % (12.0-15.0); WHITE BLOOD COUNT 11.6 x10^3/uL (4.8-10.8)
[2024-03-01 13:03] LABS: CREATININE,URINE 114.5 mg/dL; PROTEIN/CREATININE RATIO,URINE 0.2 (<=0.2)
[2024-03-01 13:03] LABS: ALBUMIN 3.5 g/dL (3.2-5.5); ALBUMIN/GLOBULIN RATIO 1.2 (1.0-2.2); BILIRUBIN,TOTAL 0.2 mg/dL (0.2-1.0); CALCIUM 8.8 mg/dL (8.5-10.3); CREATININE 0.5 mg/dL (0.6-1.3); POTASSIUM 3.9 mmol/L (3.5-4.5); TOTAL PROTEIN 6.4 g/dL (6.4-8.9)
[2024-03-01 13:21] LABS: THYROID STIMULATING HORMONE 1.99 uIU/mL (0.34-5.60)
== END 2024-03-01 12:17 | disposition home or self-care (01) ==
LOC: LAB 12:16
PROVIDERS: ATTEND Obstetrics & Gynecology
DX: O09.892 Supervision of other high risk pregnancies, second trimester (principal); O99.282 Endocrine, nutritional and metabolic diseases complicating pregnancy, second trimester; E06.3 Autoimmune thyroiditis
CPT/HCPCS: 36415; 80053; 82105; 82570; 84156; 84439; 84443; 85027

== ENCOUNTER 2024-06-13 19:54 | Inpatient (IN) ==
[2024-06-13] MEDS ORDERED: LACTATED RINGERS 1,000 ML ONE (19:59)
[2024-06-13] MEDS ORDERED: lidocaine 1% 20 ML MDV ID PRN (20:01)
[2024-06-13] MEDS ORDERED: TRANEXAMIC ACID IN NACL 1,000 MG/100 ML BAG IV PRN (20:01)
[2024-06-13] MEDS ORDERED: TERBUTALINE 1 MG/ML VIAL SUBQ PRN (20:01)
[2024-06-13] MEDS ORDERED: miSOPROStoL 200 MCG TABLET BC PRN (20:01)
[2024-06-13] MEDS ORDERED: SODIUM CHLORIDE FLUSH 0.9% 10 ML SYRINGE IVP PRN ×2 (20:01→21:58)
[2024-06-13] MEDS ORDERED: NIFEdipine 10 MG CAPSULE PO PRN (20:01)
[2024-06-13] MEDS ORDERED: LABETALOL 20 MG/4 ML SYRINGE IVP PRN ×3 (20:01)
[2024-06-13] MEDS ORDERED: miSOPROStoL 200 MCG TABLET PR PRN (20:01)
[2024-06-13] MEDS ORDERED: fentaNYL 100 MCG/2 ML VIAL IVP PRN (20:01)
[2024-06-13] MEDS ORDERED: OXYTOCIN 10 UNIT/ML VIAL IM PRN (20:01)
[2024-06-13] MEDS ORDERED: METHYLERGONOVINE 0.2 MG/ML VIAL IM PRN (20:01)
[2024-06-13] MEDS ORDERED: OXYTOCIN/SODIUM CHLORIDE 500 ML IV PRN (20:01)
[2024-06-13] MEDS ORDERED: CALCIUM CARBONATE CHEW 500 MG TABLET PO PRN (20:01)
[2024-06-13] MEDS ORDERED: hydrALAZINE INJ 20 MG/ML VIAL IVP PRN (20:01)
[2024-06-13 20:42] LABS: BASOPHILS % (AUTO) 0.3 %; EOSINOPHILS # (AUTO) 0.2 10^3/uL (0.0-0.7); EOSINOPHILS % (AUTO) 1.7 %; HCT - HEMATOCRIT 34.1 % (37.0-47.0); HGB - HEMOGLOBIN 10.9 g/dL (12.0-16.0); LYMPHOCYTES # (AUTO) 2.5 10^3/uL (1.5-3.5); LYMPHOCYTES % (AUTO) 19.3 %; MEAN CORPUSCULAR HEMOGLOBIN 26.5 pg (27.0-31.0); MEAN CORPUSCULAR VOLUME 82.8 fL (81.0-99.0); MEAN PLATELET VOLUME 12.2 fL (7.9-10.8); MONOCYTES # (AUTO) 0.8 10^3/uL (0.0-1.0); NEUTROPHILS # (AUTO) 9.4 10^3/uL (1.5-6.6); NEUTROPHILS % (AUTO) 71.6 %; PLT - PLATELET COUNT 219 10^3/uL (130-450); RED BLOOD COUNT 4.12 10^6/uL (4.20-5.40); RED CELL DISTRIBUTION WIDTH 15.9 % (12.0-15.0); WHITE BLOOD COUNT 13.1 x10^3/uL (4.8-10.8)
[2024-06-13 20:52] LABS: ALBUMIN 3.2 g/dL (3.2-5.5); BILIRUBIN,TOTAL 0.2 mg/dL (0.2-1.0); CALCIUM 8.9 mg/dL (8.5-10.3); CREATININE 0.6 mg/dL (0.6-1.3); POTASSIUM 3.8 mmol/L (3.5-4.5); TOTAL PROTEIN 6.4 g/dL (6.4-8.9)
--- NOTE | 2024-06-13 21:52 | ANESTHESIA POST OP EVALUATION ---
Anesthesia Post Eval Post Anesthesia Eval Vitals: See PACU documentation CV Function Including HR & BP: Stable Pain Control: Satisfactory Nausea & Vomiting: Negative Mental Status: Baseline Respiratory Status: Airway Patent Hydration Status: Satisfactory Anesthesia Complications: None
[2024-06-13] MEDS ORDERED: ZOLPIDEM 5 MG TABLET PO PRN (21:57)
[2024-06-13] MEDS ORDERED: ACETAMINOPHEN 325 MG TABLET PO PRN (21:58)
[2024-06-13] MEDS ORDERED: INSULIN LISPRO 300 UNIT/3 ML PEN SUBQ SCH (22:00)
--- NOTE | 2024-06-13 22:03 | HISTORY & PHYSICAL EXAMINATION ---
Admit History Visit Reason Visit Reason: Other (labor induction) : 1 Care: positive [facility] Risk/History: positive Labor induction and High risk Complications This : positive Gestational diabetes and Pre- eclampsia Smoking Status: Never smoker Other Maternal History Other Maternal History: Patient is admitted for labor induction 37w0d by LMP c/w 9 week US. WILDA 07/01. diabetes with significant insulin resistance. now on over 100 units of insulin daily. BP elevated with MFM and then urine protein over 300. no second elevated bp at our clinic. today on admit 139/85. she also gained 10 pounds in a week when her weight has been very stable. current insulin dosing: am glargine 35 units pm glargine 80 units lispro breakfast 35 lunch 35 dinner 45 but adjusts depending on levels. current dexcom 104. Clinic info: Intake Vital signs 02/21/2002:05 04/12/2413:48 05/29/2415:55 06/01/2415:10 Height 5 ft 3 in Weight 247 lb 2 oz Body Mass Index 42.5 43.6 43.8 BP 113/61 BP Location Right Brachial BP Position Sitting BP Cuff Size Large Adult BP Source Automatic Cuff Intake Intake Visit Reasons: NST & OB Clinical Staff Note: Pt here for her 35.2wk visit and NST. Pt states she would like the RSV vax if still possible. Allergies Penicillins Allergy (Severe, Verified 04/11/24 15:11) Swellingpollen extracts Adverse Reaction (Intermediate, Verified 04/11/24 15:11) Itching Home Medications - Last Reconciled 06/01/24 by Connie Flores RN aspirin (Adult Low Dose Aspirin) 81 mg PO QDAY Bacillus coagulans-inulin 1 billion-250 cell-mg (Probiotic with Prebiotic) caps PO insulin glargine (Lantus Solostar U-100 Insulin) 48 units subcut QPM insulin lispro (Humalog KwikPen (U-100) Insulin) 4 - 6 sliding scale doses subcut USEASDIRECTD levothyroxine 125 mcg PO QDAY vit no.[id number] 28 mg iron- 800 mcg (Classic ) tabs PO .DAILY Expected Delivery Route/Plan -Likely 37 to 39-week induction, care for macrosomia -Will discuss delivery location after 35-week ultrasound. Specific Issues/Plans Obesity class III with prepregnancy BMI of 43.2 LMP: 09/24/2023 WILDA by LMP: 06/30/2024 Initial US Date 12/07/2023, US Age 9 weeks 4 days, WILDA by ultrasound: 07/07/2024 Final WILDA: 06/30/2024 by LMP consistent with 9-week ultrasound Hypothyroidism/Lacie's thyroiditis: Prepregnancy dosing 112 mcg of levothyroxine with an extra dose 2 days a week. Increase to 125 mcg in . TSH has been normal throughout . Early gestational diabetes: -A1c 6.3 in early , elevated 2-hour GTT 128/237/176. -Diabetic education with MFM at [place] -EFW 04/26: 2104 g, >99th percentile. AC also > 99th percentile -Repeat EFW at 35 weeks with MFM. -Compliant with low-dose aspirin -Currently regimen: Basaglar 35/80 Short actin/35/45 -A1c pending 04/26:5.8 Rh- -Received RhoGAM 04/12 Anemia: -Taking iron supplements Pre- Weight: 236 lb BMI: 43.2 Blood type: A- Antibody: Positive- no demonstrated antibody CBC: PLT 325 HCT 37.0 HGB 11.7 RUB: Immune VZV: Immune HBsAg: Negative HepC: Negative RPR/AB-EIA: NR HIV: NR PAP: GC/CT: 12/07/2023 Negative HSV: denies in self and partner Genetic testin12/23/2023 MaterniT- Negative, AFP Ordered Covid: not vaccinated Flu: did not receive FAS: at [facility] Placenta:Anterior w/o previa Cord:3VC HERNAN:WML EFW:495g 94th%ile 3HR GTT: Early2 hr: Fastin 1hr 237; 2hr 176; 3hr TDAP:04/12 Breast Pump: RPR: NR CBC: 10.4/32.9%/240 GBS: PCN ALLERGY Delivery plan: Contraception: OB Visit Log Initial Weight: 236 lb HPI Current : Vital Signs Temperature 36.7 C 06/13/24 20:45 Pulse Rate 91 H 06/13/24 20:45 Respiratory Rate 18 06/13/24 20:45 Blood Pressure 139/66 H 06/13/24 20:45 O2 Saturation 100 06/13/24 20:45 Temperature 36.7 C 06/13/24 20:45 Pulse Rate 91 H 06/13/24 20:45 Respiratory Rate 18 06/13/24 20:45 Blood Pressure 139/66 H 06/13/24 20:45 O2 Saturation 100 06/13/24 20:45 NST Procedure NST Procedure: NST Procedure Start Time 14:17 Stop Time 15:09 Meds/Allgy Home Medications Ambulatory Orders Medication Instructions Recorded Confirmed Bacillus coagulans-inulin 1 cap PO 04/11/24 06/11/24 billion cell-250 mg capsule (Probiotic with Prebiotic) aspirin 81 mg tablet,delayed 81 mg PO QDAY 04/11/24 06/11/24 release (Adult Low Dose Aspirin) insulin glargine 100 unit/mL (3 48 unit subcut QPM 04/11/24 06/11/24 mL) subcutaneous pen (Lantus Solostar U-100 Insulin) insulin lispro 100 unit/mL 4 - 6 sliding scale dose subcut 04/11/24 06/11/24 subcutaneous pen (Humalog KwikPen USEASDIRECTD (U-100) Insulin) levothyroxine 125 mcg capsule 125 mcg PO QDAY 04/11/24 06/11/24 vits no.126-ferrous fum tab PO .DAILY 04/11/24 06/11/24 28 mg iron-folic acid 800 mcg tablet (Classic ) Allergies Allergies Allergy/AdvReac Type Severity Reaction Status Date / Time Penicillins Allergy Severe Swelling Verified 06/11/24 15:45 pollen extracts AdvReac Intermediate Itching Verified 06/11/24 15:45 [facility] Surgical History Surgical History (Updated 04/11/24 @ 15:19 by April Hodge RN) [place] teeth removed Social History Social History (Updated 04/11/24 @ 15:23 by April Hodge RN) Smoking Status: Never smoker Second hand tobacco smoke exposure: No Do you dip or chew tobacco?: No Do you vape?: No Patient requests smoking cessation consult: No Initiate information on smoking cessation: No Living arrangement: At home Marital Status: Living Condition: With family Level: Independent Do you feel safe in your home environment?: Yes Suffered physical, verbal, emotional, or financial abuse?: No History of Abuse: No ETOH Use: None Frequency: Occasional ETOH Use Details: Occasional prior to Substance Use: denies use Are you sexually active?: Yes Control Method: None POLST Patient has POLST: No Physical Abdominal Exam Vital Signs: Temp Pulse Resp BP Pulse Ox 36.7 C 91 H 18 139/66 H 100 06/13/24 20:45 06/13/24 20:45 06/13/24 20:45 06/13/24 20:45 06/13/24 20:45 Contraction Frequency (min/apart): none Monitoring Strip Review: positive Category I Presentation Presentation: positive Vertex (confirmed by ultrasound) Vaginal Exam Membranes: positive Membranes intact Dilation (in cm): closed Effacement (%): 70 Station: positive -3 Cervical Position: positive Midposition Speculum Exam Speculum Exam Performed: positive No Plan for Labor Plan For Labor I expect patient to be DC'd or transferred within 96 hours.: Yes Plan for Labor: labor induction. hopes for as natural as possible and no c section. discussed this. she seems to have realistic expectations Conclusion/Plan Problem List (1) Gestational diabetes mellitus in , insulin controlled: Plan: continue current glargine dosing. will see about premeal insulin depending on how she is doing in am. Qualifiers: Trimester: third trimester Qualified Code(s): O24.414 - Gestational diabetes mellitus in , insulin controlled (2) Supervision of high risk in third trimester: (3) Lacie thyroiditis: (4) Encounter for planned induction of labor: Plan: will start with misoprostol. induction discussed in detail, risks, benefits. consents signed. Lab Results Lab results reviewed: Yes 06/13/24 20:15 06/13/24 20:15
[2024-06-13] MEDS: miSOPROStoL 100 MCG TABLET VG SCH (22:31)
[2024-06-13] MEDS ORDERED: INSULIN GLARGINE-YFGN 300 UNIT/3 ML PEN SUBQ ONE (23:22)
[2024-06-13] MEDS: INSULIN GLARGINE-YFGN 300 UNIT/3 ML PEN SUBQ SCH (23:43)
[2024-06-14] MEDS: DOXYLAMINE 25 MG TABLET PO PRN (00:20)
[2024-06-14 02:39] LABS: CREATININE,URINE 34.5 mg/dL; PROTEIN/CREATININE RATIO,URINE 0.3 (<=0.2)
[2024-06-14] MEDS: miSOPROStoL 100 MCG TABLET VG ONE (06:50)
[2024-06-14] MEDS ORDERED: INSULIN GLARGINE-YFGN 300 UNIT/3 ML PEN SUBQ SCH ×2 (07:00→21:00)
[2024-06-14] MEDS ORDERED: FAMOTIDINE 20 MG/2 ML VIAL IVP PRN (07:56)
[2024-06-14] MEDS: miSOPROStoL 100 MCG TABLET VG SCH (08:02)
--- NOTE | 2024-06-14 08:02 | PROVIDER PROGRESS NOTE ---
Subjective Subjective Subjective: got some good sleep with Unisom. achy a bit from her bed. Not feeling contractions. glargine 60 u last night and sugar just now was 57. was ok for the rest of the night. Usual morning dose 35 glargine, 35 lispro. will do 20 and 20 as she has been lower than usual. we can always give more. she is fine with that plan. will get up and move around after breakfast and after 4 hrs from miso dose, which was 50 mcg, she will take a break for one hour and walk around, go to [employer] ([employer]: [place]) shop and then I will reassess her around noon. baby is category 1. her bps are normal. none even close to elevated since she arrived on the unit. Current Medications Current Medications Current Medications: Current Medications Generic Name Dose Route Start Last Admin Trade Name Freq PRN Reason Stop Dose Admin Acetaminophen 1,000 mg 06/13/24 20:01 Acetaminophen 500 Mg Tablet PO Q8H PRN Mild Pain or Fever>38C(100.4F) Acetaminophen 650 mg 06/13/24 21:58 Acetaminophen 325 Mg Tablet PO Q4HR PRN Pain 1 to 4, or Fever Aspirin 81 mg 06/14/24 09:00 Aspirin Ec 81 Mg Tablet PO DAILY LAVERN Calcium Carbonate/Glycine 1,000 mg 06/13/24 20:01 Calcium Carbonate Chew 500 Mg Tablet PO Q6HR PRN Heartburn Doxylamine Succinate 25 mg 06/13/24 21:57 06/14/24 00:20 Doxylamine 25 Mg Tablet PO 25 mg QPM PRN Administration Insomnia Famotidine 20 mg 06/14/24 07:56 Famotidine 20 Mg/2 Ml Vial IVP BID PRN Heartburn Fentanyl 50 mcg 06/13/24 20:01 Fentanyl 100 Mcg/2 Ml Vial IVP Q1H PRN Severe Pain (score 7-10) Hydralazine HCl 5 - 10 mg 06/13/24 20:01 Hydralazine Inj 20 Mg/Ml Vial IVP Q20M PRN SBP> or= 160 OR DBP> or= 110 Protocol Lactated Ringer's 500 mls @ 999 mls/hr 06/13/24 20:01 Lr IV PRN PRN distress Oxytocin/Sodium Chloride 500 mls @ 999 mls/hr 06/13/24 20:01 Pitocin/Sodium Chloride IV PRN PRN POST- HEMORR PREVENTION Protocol 999 MILLIUNIT/MIN Tranexamic Acid 1,000 mg in 100 mls @ 600 mls/hr 06/13/24 20:01 Tranexamic 1,000 Mg/100ml-Nacl IV Q30M PRN EBL >1200mL and within 3hr Insulin Glargine-yfgn 80 unit 06/14/24 21:00 06/13/24 23:43 Insulin Glargine-Yfgn 300 Unit/3 Ml Pen SUBQ 60 unit QPM [facility] Administration Insulin Glargine-yfgn 20 unit 06/14/24 08:00 Insulin Glargine-Yfgn 300 Unit/3 Ml Pen SUBQ ONCE [facility] Insulin Human Lispro 4 - 6 unit 06/13/24 22:00 Insulin Lispro 300 Unit/3 Ml Pen SUBQ AC [facility] Insulin Human Lispro 20 unit 06/14/24 08:00 Insulin Lispro 300 Unit/3 Ml Pen SUBQ TIDWM [facility] Labetalol HCl 20 - 80 mg 06/13/24 20:01 Labetalol 20 Mg/4 Ml Syringe IVP Q10M PRN SBP> or= 160 OR DBP> or= 110 Protocol Labetalol HCl 20 mg 06/13/24 20:01 Labetalol 20 Mg/4 Ml Syringe IVP .ONCE PRN SBP> or= 160 OR DBP> or= 110 Protocol Labetalol HCl 20 - 40 mg 06/13/24 20:01 Labetalol 20 Mg/4 Ml Syringe IVP Q10M PRN SBP> or= 160 OR DBP> or= 110 Protocol Levothyroxine Sodium 125 mcg 06/14/24 07:00 Levothyroxine 125 Mcg Tablet PO QDAC [facility] Lidocaine HCl 20 ml 06/13/24 20:01 Lidocaine 1% 20 Ml Mdv ID 06/16/24 20:01 .ONCE PRN PERINEAL REPAIR Methylergonovine Maleate 0.2 mg 06/13/24 20:01 Methylergonovine 0.2 Mg/Ml Vial IM .ONCE PRN Hemorrhage Misoprostol 600 mcg 06/13/24 20:01 Misoprostol 200 Mcg Tablet BC .ONCE PRN Hemorrhage Misoprostol 800 mcg 06/13/24 20:01 Misoprostol 200 Mcg Tablet OR .ONCE PRN Hemorrhage Misoprostol 50 mcg 06/14/24 06:30 Misoprostol 100 Mcg Tablet VG Q4H [facility] Nifedipine 10 - 20 mg 06/13/24 20:01 Nifedipine 10 Mg Capsule PO Q20M PRN SBP> or= 160 OR DBP> or= 110 Protocol Ondansetron HCl 4 mg 06/13/24 20:01 Ondansetron Odt 4 Mg Tablet PO Q4HR PRN Nausea / Vomiting Oxytocin 10 unit 06/13/24 20:01 Oxytocin 10 Unit/Ml Vial IM .ONCE PRN Step One if no IV access. Multivit/Folic Acid/Iron 1 tab 06/14/24 08:00 Vitamin Tablet PO DAILYWM [facility] Sodium Chloride 10 ml 06/13/24 20:01 Sodium Chloride Flush 0.9% 10 Ml Syringe IVP PRN PRN NEEDED PER PROVIDER ORDERS Sodium Chloride 10 ml 06/13/24 21:00 Sodium Chloride Flush 0.9% 10 Ml Syringe IVP Q8H [facility] Sodium Chloride 10 ml 06/13/24 21:58 Sodium Chloride Flush 0.9% 10 Ml Syringe IVP PRN PRN NEEDED PER PROVIDER ORDERS Sodium Chloride 10 ml 06/14/24 01:00 Sodium Chloride Flush 0.9% 10 Ml Syringe IVP 0100,0900,1700 [facility] Terbutaline Sulfate 0.25 mg 06/13/24 20:01 Terbutaline 1 Mg/Ml Vial SUBQ .ONCE PRN Tachystole Zolpidem Tartrate 5 mg 06/13/24 21:57 Zolpidem 5 Mg Tablet PO QPM PRN Insomnia Objective Vital Signs/Intake & Output Vital Signs: Vital Signs x48h Temp Pulse Resp BP Pulse Ox 06/14/24 06:49 36.9 C 88 14 113/49 L 96 06/14/24 02:41 36.8 C 74 14 115/56 L 95 Intake & Output: Intake & Output 06/11/24 06/12/24 06/13/24 06/14/24 23:59 23:59 23:59 23:59 Weight (kg) 255 lb Lab Results 06/13/24 20:15 06/13/24 20:15 Other Labs: Lab Results x24hrs 06/13/24 06/13/24 06/13/24 Range/Units 23:30 20:54 20:15 WBC 13.1 H (4.8-10.8) x10^3/uL RBC 4.12 L (4.20-5.40) 10^6/uL Hgb 10.9 L (12.0-16.0) g/dL Hct 34.1 L (37.0-47.0) % MCV 82.8 (81.0-99.0) fL MCH 26.5 L (27.0-31.0) pg MCHC 32.0 (32.0-36.0) g/dL RDW 15.9 H (12.0-15.0) % Plt Count 219 (130-450) 10^3/uL MPV 12.2 H (7.9-10.8) fL Neut # (Auto) 9.4 H (1.5-6.6) 10^3/uL Lymph # (Auto) 2.5 (1.5-3.5) 10^3/uL Long # (Auto) 0.8 (0.0-1.0) 10^3/uL Eos # (Auto) 0.2 (0.0-0.7) 10^3/uL Baso # (Auto) 0.0 (0.0-0.1) 10^3/uL Absolute Nucleated RBC 0.00 x10^3/uL Nucleated RBC % 0.0 /100WBC Sodium 133 L (135-145) mmol/L Potassium 3.8 (3.5-4.5) mmol/L Chloride 105 (101-111) mmol/L Carbon Dioxide 21 (21-32) mmol/L Anion Gap 7.0 (6-13) BUN 10 (6-20) mg/dL Creatinine 0.6 (0.6-1.3) mg/dL Estimated GFR (MDRD) 118 (>89) Glucose 172 H (74-104) mg/dL POC Whole Bld Glucose 67 (70-100) mg/dL Uric Acid (2.3-6.6) mg/dL Calcium 8.9 (8.5-10.3) mg/dL Total Bilirubin 0.2 (0.2-1.0) mg/dL AST 11 (10-42) IU/L ALT 9 L (10-60) IU/L Alkaline Phosphatase 136 H (42-121) IU/L Total Protein 6.4 (6.4-8.9) g/dL Albumin 3.2 (3.2-5.5) g/dL Globulin 3.2 (2.1-4.2) g/dL Albumin/Globulin Ratio 1.0 (1.0-2.2) Urine Creatinine mg/dL Ur Total Protein Timed mg/dL Protein/Creatinin Ratio (<=0.2) Blood Type A NEGATIVE Blood Type Recheck A NEGATIVE Antibody Screen NEGATIVE Crossmatch IS Only See Detail 06/13/24 Range/Units 20:05 WBC (4.8-10.8) x10^3/uL RBC (4.20-5.40) 10^6/uL Hgb (12.0-16.0) g/dL Hct (37.0-47.0) % MCV (81.0-99.0) fL MCH (27.0-31.0) pg MCHC (32.0-36.0) g/dL RDW (12.0-15.0) % Plt Count (130-450) 10^3/uL MPV (7.9-10.8) fL Neut # (Auto) (1.5-6.6) 10^3/uL Lymph # (Auto) (1.5-3.5) 10^3/uL Long # (Auto) (0.0-1.0) 10^3/uL Eos # (Auto) (0.0-0.7) 10^3/uL Baso # (Auto) (0.0-0.1) 10^3/uL Absolute Nucleated RBC x10^3/uL Nucleated RBC % /100WBC Sodium (135-145) mmol/L Potassium (3.5-4.5) mmol/L Chloride (101-111) mmol/L Carbon Dioxide (21-32) mmol/L Anion Gap (6-13) BUN (6-20) mg/dL Creatinine (0.6-1.3) mg/dL Estimated GFR (MDRD) (>89) Glucose (74-104) mg/dL POC Whole Bld Glucose (70-100) mg/dL Uric Acid 3.9 (2.3-6.6) mg/dL Calcium (8.5-10.3) mg/dL Total Bilirubin (0.2-1.0) mg/dL AST (10-42) IU/L ALT (10-60) IU/L Alkaline Phosphatase (42-121) IU/L Total Protein (6.4-8.9) g/dL Albumin (3.2-5.5) g/dL Globulin (2.1-4.2) g/dL Albumin/Globulin Ratio (1.0-2.2) Urine Creatinine 34.5 mg/dL Ur Total Protein Timed 9 mg/dL Protein/Creatinin Ratio 0.3 H (<=0.2) Blood Type Blood Type Recheck Antibody Screen Crossmatch IS Only Assessment/Plan Problem List (1) Gestational diabetes mellitus in , insulin controlled: Qualifiers: Trimester: third trimester Qualified Code(s): O24.414 - Gestational diabetes mellitus in , insulin controlled (2) Supervision of high risk in third trimester: (3) Lacie thyroiditis: (4) Encounter for planned induction of labor:
[2024-06-14] MEDS: PRENATAL VITAMIN TABLET PO SCH (08:20)
[2024-06-14] MEDS: INSULIN GLARGINE-YFGN 300 UNIT/3 ML PEN SUBQ ONE ×2 (08:21→22:41)
[2024-06-14] MEDS: ASPIRIN EC 81 MG TABLET PO SCH (08:21)
[2024-06-14] MEDS: LEVOTHYROXINE 125 MCG TABLET PO SCH (08:21)
[2024-06-14] MEDS: INSULIN LISPRO 300 UNIT/3 ML PEN SUBQ SCH (08:22)
[2024-06-14] MEDS ORDERED: FAMOTIDINE 20 MG/2 ML VIAL IVP SCH (09:00)
--- NOTE | 2024-06-14 10:46 | PHARMACY PROGRESS NOTE ---
Best Possible Medication History Admit Date and Time: 06/13/24 1359 Home Medications Medication Instructions Recorded Confirmed Type Bacillus coagulans-inulin 1 1 cap PO DAILY 04/11/24 06/14/24 History billion cell-250 mg capsule (Probiotic with Prebiotic) aspirin 81 mg tablet,delayed 81 mg PO QDAY 04/11/24 06/14/24 History release (Adult Low Dose Aspirin) insulin glargine 100 unit/mL (3 30 - 80 unit subcut BID 04/11/24 06/14/24 History mL) subcutaneous pen (Lantus Solostar U-100 Insulin) insulin lispro 100 unit/mL 4 - 6 sliding scale dose subcut 04/11/24 06/14/24 History subcutaneous pen (Humalog KwikPen USEASDIRECTD (U-100) Insulin) levothyroxine 125 mcg capsule 125 mcg PO QDAY 04/11/24 06/14/24 History vits no.126-ferrous fum 1 tab PO DAILY 04/11/24 06/14/24 History 28 mg iron-folic acid 800 mcg tablet (Classic ) Processed by: Pharmacy (Medication reconciliation completed by pharmacy sales representativeKristin) Medications reviewed in ED?: No Medication History completed: Yes Patient Interview: Completed Secondary Source(s): Insurance records [facility] Statement: As the person ultimately responsible for medication therapy, providers are able to order a medication from an existing home medication list in [facility] via the "Reconcile Routine" prior to Confirmation of that medication by software support specialist. Such practice is discouraged except when the physician, in their clinical judgment, deems that a medical need exists for a medication without regard to previous use.
--- NOTE | 2024-06-14 16:46 | PROVIDER PROGRESS NOTE ---
Labor Progress Note Uterine Monitoring Uterine Monitoring Mode: positive External toco Contraction Frequency (min/apart): irreg Contraction Intensity: positive Mild Monitoring Monitor Mode: positive External ultrasound Vaginal Exam Dilation (in cm): unable to reach Station: 0 Cervical Position: Posterior Labor Progress Note Labor Progress Note/Additional Text: just out of bath. eating lunch. 20 u lispro before she ate. bps fine. feels ok. unable to reach cervix so just placed 50 mcg of miso. seemed to work well for her last time. Unable to feel cervix to place balloon.
--- NOTE | 2024-06-14 20:27 | PROVIDER PROGRESS NOTE ---
Labor Progress Note Uterine Monitoring Uterine Monitoring Mode: positive External toco Contraction Intensity: positive Mild to moderate Monitoring Monitor Mode: positive External ultrasound Heart Rate Baseline: 150 Heart Rate Variability: positive Moderate (6-25 bmp) Accelerations: positive Present, 15x15 Decelerations: positive None Strip Review: positive Category I Vaginal Exam Dilation (in cm): 1 Effacement (%): 80 Station: -1 Cervical Position: Posterior Labor Progress Note Labor Progress Note/Additional Text: still sporadically uncomfortable with contractions every 2-3 min or so. agrees to exam and placement of catheter. difficult for me to get to cervix but I was able to get there and get catheter in place. 60 cc into uterine balloon, checked that it was in good place. vaginal opening is somewhat small. At this point, she is kayleen too much for more miso, catheter seems best option. She agreed. pretty crampy when done. patient says she was about 6 pounds at . US at [facility] on 06/08 with EFW 3452/7lb10 95%ile. HC was 338 mm 82%ile, AC was 346 mm 98%ile so pretty similar. sugars today have been pretty well controlled, dialing back on her insulin doses. did 20 glargine and 20 before all meals today with minimal spikes and sometime to 60s. New sensor so some spurious low. will do 35 units glargine tonight. bps have been good. labs normal. was 139 systolic on admit. otherwise less than that.
[2024-06-14] MEDS: ACETAMINOPHEN 500 MG TABLET PO PRN (22:58)
[2024-06-15] MEDS: SODIUM CHLORIDE FLUSH 0.9% 10 ML SYRINGE IVP SCH ×2 (12:20→14:40)
--- NOTE | 2024-06-15 14:47 | PROVIDER PROGRESS NOTE ---
Labor Progress Note Uterine Monitoring Uterine Monitoring Mode: positive External toco Contraction Frequency (min/apart): Occasional, irregular Contraction Intensity: positive Mild Uterine Resting Tone: positive Soft Monitoring Monitor Mode: positive External ultrasound Heart Rate Baseline: 130 Heart Rate Variability: positive Moderate (6-25 bmp) Accelerations: positive Present, 15x15 Decelerations: positive None Strip Review: positive Category I Vaginal Exam Dilation (in cm): 4 Effacement (%): 50 Station: -3 Labor Progress Note Labor Progress Note/Additional Text: S/ Assumed care of patient from Dr. Roberts at 0800 this morning. History and labor course reviewed. course notable for GDM A2 (requiring high doses of insulin; most recently, she received Glargine 35 units last night with Lispro 20 units with meals), Lacie's, pre-E, obesity (BMI 45), and Rh neg. She is now s/p misoprostol x 5 doses (4 yesterday/last night followed by Cook catheter, which fell out overnight, then 5th 50 mcg vaginal dose at 1015 this am when cvx felt to be approx 2-3 cm but exam limited by patient discomfort). She had some discomfort overnight, mainly due to the Cook balloon but has not had sustained discomfort or ctx. O/ VSS and normal General: Awake and sitting up in bed, comfortable Cvx: 450/-3 at 1410 (patient provided with nitrous oxide to tolerate exam) FHT/[place] as above Bedside glucose levels: 80-90s, both pre- and 1-hr post-meals A/P IOL at 37+0 (now 37+2) for GDMA2 and PreE. Induction progressing slowly. - GDMA2: Held AM Glargine given lower PO intake during labor. Cont with Lispro 20 units with meals, and plan for PM Glargine 35 units again tonight. Once NPO with labor, consider insulin pump. - Lacie's: Cont Synthroid 125 mcg daily. - PreE: BPs normal since admission; cont to monitor - Labor: Start Pitocin per protocol. Discussed plan to reassess cvx once 4-6 hrs of regular contractions on Pitocin. Consider amniotomy at that time if station is lower. - Pain mgmt: Desires to avoid epidural if possible. May cont with Nitrous oxide prn, but may have epidural if/when she desires.
[2024-06-15] MEDS: OXYTOCIN/SODIUM CHLORIDE 500 ML IV SCH (14:53)
[2024-06-15] MEDS: LACTATED RINGERS 1,000 ML IV PRN (14:57)
[2024-06-15] MEDS ORDERED: INSULIN LISPRO 300 UNIT/3 ML PEN SUBQ ONE (17:35)
[2024-06-15] MEDS: INSULIN GLARGINE-YFGN 300 UNIT/3 ML PEN SUBQ ONE (21:05)
--- NOTE | 2024-06-15 22:08 | PROVIDER PROGRESS NOTE ---
Labor Progress Note Uterine Monitoring Uterine Monitoring Mode: positive External toco Contraction Frequency (min/apart): Q 3-4 min with Pitocin at 14mU/min Contraction Intensity: positive Mild to moderate Uterine Resting Tone: positive Soft Monitoring Monitor Mode: positive External ultrasound Heart Rate Baseline: 110s Heart Rate Variability: positive Moderate (6-25 bmp) Accelerations: positive Present, 15x15 Decelerations: positive None Strip Review: positive Category I Vaginal Exam Dilation (in cm): 5 Effacement (%): 50 Station: -2 Cervical Position: Midposition Labor Progress Note Labor Progress Note/Additional Text: S/ Patient doing well - mildly uncomfortable with contractions since start of Pitocin. O/ VSS and normal General: Awake and comfortable-appearing Cvx: 5/50/-2; amniotomy performed at time of exam --> clear fluid noted (p atient provided with nitrous oxide to tolerate exam) FHT/[place] as above Bedside glucose levels: 56 pre-dinner; dinner Lispro 10 units given (instead of 20 units); 2-hr post-dinner was 140s A/P IOL at 37+0 (now 37+2) for GDMA2 and PreE. Induction progressing slowly. - GDMA2: dinner Lispro 10 units given; plan for PM Glargine 20 units (instead of 35 units as given last night). Once NPO with labor, consider insulin pump. - Lacie's: Cont Synthroid 125 mcg daily. - PreE: BPs normal since admission; cont to monitor - Labor: Amniotomy performed for augmentation. Cont Pitocin per protocol. - Pain mgmt: Desires to avoid epidural if possible. May cont with Nitrous oxide prn and OK for water therapy, but may have epidural if/when she desires.
[2024-06-15] MEDS: ONDANSETRON ODT 4 MG TABLET PO PRN (23:11)
[2024-06-16] MEDS ORDERED: ROPIVACAINE 0.2% 200 MG/100 ML BAG EP ONE (01:16)
[2024-06-16] MEDS ORDERED: LIDOCAINE 2%-EPI 1:100000 20 ML MDV ONE (01:16)
[2024-06-16] MEDS ORDERED: ONDANSETRON 4 MG/2 ML VIAL IVP PRN (01:52)
[2024-06-16] MEDS ORDERED: METOCLOPRAMIDE 10 MG/2 ML VIAL IVP PRN (01:52)
[2024-06-16] MEDS ORDERED: NALOXONE 0.4 MG/ML VIAL IVP PRN ×2 (01:52→09:51)
[2024-06-16] MEDS ORDERED: LACTATED RINGERS 500 ML IV ONE (01:52)
[2024-06-16] MEDS ORDERED: diphenhydrAMINE INJ 50 MG/ML VIAL IVP PRN (01:52)
[2024-06-16] MEDS ORDERED: NALBUPHINE 10 MG/ML AMP IVP PRN (01:52)
[2024-06-16] MEDS ORDERED: ePHEDrine 50 MG/ML VIAL IVP PRN (01:52)
--- NOTE | 2024-06-16 01:57 | ANESTHESIA PROCEDURE NOTE ---
Pre-Anesthesia VS, & Labs Diagnosis Surgical Diagnosis:: term labor pain Procedure Procedure: epidural for Vitals Vital Signs: Temp Pulse Resp BP Pulse Ox 36.8 C 66 14 109/61 95 06/15/24 01:51 06/15/24 01:51 06/15/24 01:51 06/15/24 01:51 06/15/24 01:51 NPO Last Fluid Intake: t/o noc Is Patient ?: Yes Lab Results Current Lab Results: Laboratory Tests 06/15/24 19:30: POC Whole Bld Glucose 142 06/15/24 17:05: POC Whole Bld Glucose 57 06/14/24 20:57: POC Whole Bld Glucose 64 06/14/24 16:57: POC Whole Bld Glucose 135 06/14/24 12:31: POC Whole Bld Glucose 70 06/13/24 23:30: POC Whole Bld Glucose 67 06/13/24 20:54: Blood Type Recheck A NEGATIVE, Crossmatch IS Only See Detail 06/13/24 20:15: WBC 13.1 H, RBC 4.12 L, Hgb 10.9 L, Hct 34.1 L, MCV 82.8, MCH 26.5 L, MCHC 32.0, RDW 15.9 H, Plt Count 219, MPV 12.2 H, Neut # (Auto) 9.4 H, Lymph # (Auto) 2.5, [place] # (Auto) 0.8, Eos # (Auto) 0.2, Baso # (Auto) 0.0, Absolute Nucleated RBC 0.00, Nucleated RBC % 0.0, Sodium 133 L, Potassium 3.8, Chloride 105, Carbon Dioxide 21, Anion Gap 7.0, BUN 10, Creatinine 0.6, Estimated GFR (MDRD) 118, Glucose 172 H, Calcium 8.9, Total Bilirubin 0.2, AST 11, ALT 9 L, Alkaline Phosphatase 136 H, Total Protein 6.4, Albumin 3.2, Globulin 3.2, Albumin/Globulin Ratio 1.0, Blood Type A NEGATIVE, Antibody Screen NEGATIVE, Crossmatch IS Only See Detail 06/13/24 20:05: Uric Acid 3.9 06/13/24 20:15 06/13/24 20:15 Meds/Allgy Home Medications Ambulatory Orders Medication Instructions Recorded Confirmed Bacillus coagulans-inulin 1 1 cap PO DAILY 04/11/24 06/14/24 billion cell-250 mg capsule (Probiotic with Prebiotic) aspirin 81 mg tablet,delayed 81 mg PO QDAY 04/11/24 06/14/24 release (Adult Low Dose Aspirin) insulin glargine 100 unit/mL (3 30 - 80 unit subcut BID 04/11/24 06/14/24 mL) subcutaneous pen (Lantus Solostar U-100 Insulin) insulin lispro 100 unit/mL 4 - 6 sliding scale dose subcut 04/11/24 06/14/24 subcutaneous pen (Humalog KwikPen USEASDIRECTD (U-100) Insulin) levothyroxine 125 mcg capsule 125 mcg PO QDAY 04/11/24 06/14/24 vits no.126-ferrous fum 1 tab PO DAILY 04/11/24 06/14/24 28 mg iron-folic acid 800 mcg tablet (Classic ) Allergies Allergies Allergy/AdvReac Type Severity Reaction Status Date / Time Penicillins Allergy Severe Swelling Verified 06/15/24 09:08 pollen extracts AdvReac Intermediate Itching Verified 06/15/24 09:08 [facility] Medical History Medical History (Updated 06/15/24 @ 14:36 by Lauryn Canales MD) Slow slope active phase of labor Surgical History Surgical History (Updated 04/11/24 @ 15:19 by April Hodge RN) [place] teeth removed Social History Social History (Updated 04/11/24 @ 15:23 by April Hodge RN) Smoking Status: Never smoker Second hand tobacco smoke exposure: No Do you dip or chew tobacco?: No Do you vape?: No Patient requests smoking cessation consult: No Initiate information on smoking cessation: No Living arrangement: At home Marital Status: Living Condition: With family Relationship: Spouse Level: Independent Do you feel safe in your home environment?: Yes Suffered physical, verbal, emotional, or financial abuse?: No History of Abuse: No ETOH Use: None Frequency: Occasional ETOH Use Details: Occasional prior to Substance Use: denies use Are you sexually active?: Yes Control Method: None POLST Patient has POLST: No Anesthesia Exam (Expanded) Exam General: Alert, Oriented x3 and Mild distress Dental: WNL Mouth Opening: Greater than 4 Fingerbreadths Neck Mobility: Normal Mallampati classification: II Thyromental Distance: 4-6 cm Respiratory: No respiratory distress Cardiovascular: Regular rate Mental/Cognitive Status: Alert/Oriented X3 and Normal for patient Cognitive Status: Within normal limits Plan Problem List (1) Gestational diabetes mellitus in , insulin controlled: Plan: continue current glargine dosing. will see about premeal insulin depending on how she is doing in am. Qualifiers: Trimester: third trimester Qualified Code(s): O24.414 - Gestational diabetes mellitus in , insulin controlled (2) Supervision of high risk in third trimester: (3) Lacie thyroiditis: (4) Encounter for planned induction of labor: Plan: will start with misoprostol. induction discussed in detail, risks, benefits. consents signed. Plan Anesthesia Type: Epidural Consent for Procedure(s) Verified and Reviewed: Yes Code Status: Attempt Resuscitation ASA Classification ASA classification: 3-Severe systemic disease Is this case an emergency?: No
[2024-06-16] MEDS: ROPIVACAINE 0.2% 200 MG/100 ML BAG EP PRN (06:58)
--- NOTE | 2024-06-16 08:11 | PROVIDER PROGRESS NOTE ---
Labor Progress Note Uterine Monitoring Uterine Monitoring Mode: positive External toco Contraction Frequency (min/apart): Q 2-4 min with Pitocin at 12 mU/min Contraction Intensity: positive Moderate to strong Uterine Resting Tone: positive Soft Monitoring Monitor Mode: positive Spiral electrode Heart Rate Baseline: 120s; FSE placed at approx 0750 due to difficulty tracing the FHR Heart Rate Variability: positive Moderate (6-25 bmp) Accelerations: positive Present, 15x15 Decelerations: positive Variable and Intermittent (<50% x20 min) Strip Review: positive Category II Vaginal Exam Dilation (in cm): 10 Effacement (%): 100 Station: 1 Labor Progress Note Labor Progress Note/Additional Text: S/ Patient feeling intense pressure to push - not alleviated with patient epidural bolus. Overnight events: she had epidural placed after AROM to achieve better pain mgmt; cvx at 0230 was 6-7 cm by RN exam. This morning, cvx c/c/0 at approx 0615 with patient feeling strong urge to push. O/ VSS and normal General: Awake and comfortable-appearing Cvx: c/c/+1 FHT/[place] as above; having difficulty tracing FHR in various pushing positions - FSE placed A/P IOL at 37+0 (now 37+3) for GDMA2 and PreE. Now in second stage of labor. - Discussed indication for FSE, and device placed without complications. - Anesthesia consulted to consider epidural bolus to help with pain and optimal pushing. -Anticipate . - PreE: BPs normal since admission; cont to monitor..
[2024-06-16] MEDS ORDERED: SODIUM CHLORIDE 0.9% 10 ML VIAL IVP ONE (08:23)
[2024-06-16] MEDS ORDERED: BUPIVACAINE 0.5% PF 10 ML VIAL ONE (08:23)
[2024-06-16] MEDS ORDERED: LIDOCAINE-PF 2% 10 ML AMP SUBQ ONE (08:23)
[2024-06-16] MEDS ORDERED: fentaNYL 100 MCG/2 ML VIAL ONE (08:23)
[2024-06-16] MEDS ORDERED: NIFEdipine 10 MG CAPSULE PO PRN (09:51)
[2024-06-16] MEDS ORDERED: LABETALOL 5 MG/1 ML 20 ML MDV IVP PRN (09:51)
[2024-06-16] MEDS ORDERED: OXYTOCIN/SODIUM CHLORIDE 500 ML IV PRN (09:51)
[2024-06-16] MEDS ORDERED: LABETALOL 20 MG/4 ML SYRINGE IVP PRN ×2 (09:51)
[2024-06-16] MEDS ORDERED: hydrALAZINE INJ 20 MG/ML VIAL IVP PRN ×2 (09:51)
--- NOTE | 2024-06-16 10:06 | DELIVERY NOTE ---
Delivery Note Labor Labor: positive Augmented by oxytocin Infant Delivery Method Delivery Method: positive Spontaneous vaginal delivery Cervical Ripening Method Cervical Ripening Method: positive Balloon device and Misoprostil (5 total vaginal doses; 25 mcg x 2, 50 mcg x 3) Presentation Presentation: positive Vertex and DWAIN - right occiput anterior Nuchal Cord Nuchal Cord: positive None Amniotic Fluid Description Amniotic Fluid Description: positive Clear Episiotomy Type Episiotomy Type: positive None Laceration Laceration: positive 2nd degree (Repaired with 3-0 vicryl in usual fashion) Suture Suture Type: positive Vicryl Suture Size: positive 3-0 Delivery Outcome Delivery Date: 06/16/24 Delivery Time: 08:45 Delivery Outcome: positive Livebirth Balko Balko: positive Placed in direct skin contact with mother, Stimulated and Warmed sex: positive Male Cord Cord: positive 3 vessels Placenta Placenta: positive Intact and Spontaneous Estimated Blood Loss Estimated Blood Loss (in cc): 215 Post Delivery Events Post Delivery Events: positive No post delivery events Delivery Comments (Free Text/Narrative) Delivery Comments (Free Text/Narrative): [place] reached c/c/+1 with strong urge to push. Trying various positions, expulsive efforts were most effective squatting with bar. Head delivered DWAIN with no nuchal cord noted. Shoulders and corpus followed slowly with gentle linear traction; no dystocia maneuvers required. The male had Apgars 9/9, wt 8 lb. He was placed on the maternal abdomen. Cord was clamped and cut after one-minute delay. Bladder was then drained of 200 ml via in/out [place] cath. Placenta then delivered intact with 3VC. Uterus firmed with massage and Pitocin bolus. 2' laceration was repaired with 3-0 vicryl in the usual fashion, and hemostasis ensured. Mom and baby doing very well.
[2024-06-16] MEDS: IBUPROFEN 600 MG TABLET PO PRN (10:45)
[2024-06-17] MEDS: ACETAMINOPHEN 500 MG TABLET PO PRN (03:38)
[2024-06-17 07:33] LABS: HCT - HEMATOCRIT 32.9 % (37.0-47.0); HGB - HEMOGLOBIN 10.5 g/dL (12.0-16.0); MEAN CORPUSCULAR HEMOGLOBIN 27.2 pg (27.0-31.0); MEAN CORPUSCULAR HGB CONC 31.9 g/dL (32.0-36.0); MEAN CORPUSCULAR VOLUME 85.2 fL (81.0-99.0); MEAN PLATELET VOLUME 12.3 fL (7.9-10.8); RED BLOOD COUNT 3.86 10^6/uL (4.20-5.40); RED CELL DISTRIBUTION WIDTH 16.6 % (12.0-15.0); WHITE BLOOD COUNT 12.5 x10^3/uL (4.8-10.8)
[2024-06-17 07:34] LABS: ALBUMIN 2.8 g/dL (3.2-5.5); BILIRUBIN,TOTAL 0.2 mg/dL (0.2-1.0); CALCIUM 8.5 mg/dL (8.5-10.3); CREATININE 0.7 mg/dL (0.6-1.3); POTASSIUM 4.1 mmol/L (3.5-4.5); TOTAL PROTEIN 5.5 g/dL (6.4-8.9)
[2024-06-17] MEDS: DOCUSATE SODIUM 100 MG CAPSULE PO SCH (07:57)
--- NOTE | 2024-06-17 12:40 | PROVIDER PROGRESS NOTE ---
Subjective Prog Note Date Prog Note Date: 06/17/24 Prog Note Time: 12:37 Subjective Pt reports feeling: Improved Subjective: PPD #1 s/p following IOL for GDM A2 with preE w/o severe features - Patient has been doing well. She feels sore but is otherwise well. Lochia has been decreasing, and she is voiding without concerns. Baby is at the bedside and . Current Medications Current Medications Current Medications: Current Medications Generic Name Dose Route Start Last Admin Trade Name Freq PRN Reason Stop Dose Admin Acetaminophen 650 mg 06/13/24 21:58 Acetaminophen 325 Mg Tablet PO Q4HR PRN Pain 1 to 4, or Fever Acetaminophen 1,000 mg 06/16/24 09:51 06/17/24 03:38 Acetaminophen 500 Mg Tablet PO 1,000 mg Q8HR PRN Administration Mild Pain or Fever>38C(100.4F) Calcium Carbonate/Glycine 1,000 mg 06/13/24 20:01 Calcium Carbonate Chew 500 Mg Tablet PO Q6HR PRN Heartburn Diphenhydramine HCl 12.5 - 25 mg 06/16/24 01:52 Diphenhydramine Inj 50 Mg/Ml Vial IVP Q6HR PRN ITCHING Docusate Sodium 100 mg 06/16/24 21:00 06/17/24 07:57 Docusate Sodium 100 Mg Capsule PO 100 mg BID LAVERN Administration Doxylamine Succinate 25 mg 06/13/24 21:57 06/14/24 23:01 Doxylamine 25 Mg Tablet PO 25 mg QPM PRN Administration Insomnia Ephedrine Sulfate 5 mg 06/16/24 01:52 Ephedrine 50 Mg/Ml Vial IVP Q5M PRN For SBP<100;give until SBP>100 Famotidine 20 mg 06/14/24 07:56 Famotidine 20 Mg/2 Ml Vial IVP BID PRN Heartburn Hydralazine HCl 5 - 10 mg 06/13/24 20:01 Hydralazine Inj 20 Mg/Ml Vial IVP Q20M PRN SBP> or= 160 OR DBP> or= 110 Protocol Hydralazine HCl 10 mg 06/16/24 09:51 Hydralazine Inj 20 Mg/Ml Vial IVP .ONCE PRN SBP> or= 160 OR DBP> or= 110 Protocol Hydralazine HCl 5 - 10 mg 06/16/24 09:51 Hydralazine Inj 20 Mg/Ml Vial IVP Q20M PRN SBP >=160 and/or DBP >=110 Protocol Oxytocin/Sodium Chloride 500 mls @ 2 mls/hr 06/15/24 15:00 06/16/24 09:30 Pitocin/Sodium Chloride IV 0 milliunit/min TITR LAVERN 0 mls/hr Titration Protocol 2 MILLIUNIT/MIN Ropivacaine 200 mg in 100 mls @ 0 mls/hr 06/16/24 01:52 06/16/24 06:58 Naropin 0.2% EP 10 mls/hr PRN PRN Administration PAIN Protocol Per Protocol Oxytocin/Sodium Chloride 500 mls @ 999 mls/hr 06/16/24 09:51 Pitocin/Sodium Chloride IV PRN PRN POST- HEMORR PREVENTION Protocol 999 MILLIUNIT/MIN Ibuprofen 600 mg 06/16/24 09:51 06/17/24 07:57 Ibuprofen 600 Mg Tablet PO 600 mg Q6HR PRN Administration Moderate Pain (Level 4-6) Labetalol HCl 20 - 80 mg 06/13/24 20:01 Labetalol 20 Mg/4 Ml Syringe IVP Q10M PRN SBP> or= 160 OR DBP> or= 110 Protocol Labetalol HCl 20 mg 06/13/24 20:01 Labetalol 20 Mg/4 Ml Syringe IVP .ONCE PRN SBP> or= 160 OR DBP> or= 110 Protocol Labetalol HCl 20 - 40 mg 06/13/24 20:01 Labetalol 20 Mg/4 Ml Syringe IVP Q10M PRN SBP> or= 160 OR DBP> or= 110 Protocol Labetalol HCl 20 - 80 mg 06/16/24 09:51 Labetalol 5 Mg/1 Ml 20 Ml Mdv IVP Q10M PRN SBP> or= 160 OR DBP> or= 110 Protocol Labetalol HCl 20 - 40 mg 06/16/24 09:51 Labetalol 20 Mg/4 Ml Syringe IVP Q10M PRN SBP> or= 160 OR DBP> or= 110 Protocol Labetalol HCl 20 mg 06/16/24 09:51 Labetalol 20 Mg/4 Ml Syringe IVP .ONCE PRN SBP >=160 and/or DBP >=110 Protocol Levothyroxine Sodium 125 mcg 06/14/24 07:00 06/17/24 07:57 Levothyroxine 125 Mcg Tablet PO 125 mcg QDAC LAVERN Administration Methylergonovine Maleate 0.2 mg 06/13/24 20:01 Methylergonovine 0.2 Mg/Ml Vial IM .ONCE PRN Hemorrhage Metoclopramide HCl 10 mg 06/16/24 01:52 Metoclopramide 10 Mg/2 Ml Vial IVP Q6HR PRN Nausea / Vomiting Nalbuphine HCl 2.5 - 5 mg 06/16/24 01:52 Nalbuphine 10 Mg/Ml Amp IVP Q4H PRN ITCHING Naloxone HCl 0.1 mg 06/16/24 01:52 Naloxone 0.4 Mg/Ml Vial IVP Q2M PRN RR<8 Naloxone HCl 0.4 mg 06/16/24 09:51 Naloxone 0.4 Mg/Ml Vial IVP .ONCE PRN Opioid Overdose Nifedipine 10 - 20 mg 06/13/24 20:01 Nifedipine 10 Mg Capsule PO Q20M PRN SBP> or= 160 OR DBP> or= 110 Protocol Nifedipine 10 - 20 mg 06/16/24 09:51 Nifedipine 10 Mg Capsule PO Q20M PRN SBP >=160 and/or DBP >=110 Protocol Ondansetron HCl 4 mg 06/13/24 20:01 06/15/24 23:11 Ondansetron Odt 4 Mg Tablet PO 4 mg Q4HR PRN Administration Nausea / Vomiting Ondansetron HCl 4 mg 06/16/24 01:52 Ondansetron 4 Mg/2 Ml Vial IVP Q6HR PRN Nausea / Vomiting Multivit/Folic Acid/Iron 1 tab 06/14/24 08:00 06/17/24 07:57 Vitamin Tablet PO 1 tab DAILYWM LAVERN Administration Sodium Chloride 10 ml 06/13/24 21:58 Sodium Chloride Flush 0.9% 10 Ml Syringe IVP PRN PRN NEEDED PER PROVIDER ORDERS Sodium Chloride 10 ml 06/14/24 01:00 06/15/24 14:43 Sodium Chloride Flush 0.9% 10 Ml Syringe IVP Not Given 0100,0900,1700 LAVERN Zolpidem Tartrate 5 mg 06/13/24 21:57 Zolpidem 5 Mg Tablet PO QPM PRN Insomnia Objective Vital Signs/Intake & Output Reviewed Vital Signs: Yes Vital Signs: Vital Signs x48h Temp Pulse Resp BP Pulse Ox 06/17/24 07:31 37.0 C 78 18 109/61 98 Intake & Output: Intake & Output 06/14/24 06/15/24 06/16/24 06/17/24 23:59 23:59 23:59 23:59 Intake Total 316 / 316 1151 / 1151 Output Total 1500 / 1500 150 / 150 Balance 316 / 316 -349 / -349 -150 / -150 Weight (kg) 114.1 kg Glucose levels primarily in 140s since delivery; all levels < 180s Objective General Appearance: positive No acute distress and Alert Eyes Bilateral: positive Normal inspection Neck: positive Nml inspection Respiratory: positive No respiratory distress Cardiovascular: positive Regular rate & rhythm Abdomen: positive Non-tender Skin: positive Color nml Extremities: positive Pedal edema (2+ pitting bilaterally) Neurologic/Psychiatric: positive Oriented x3, Motor nml and Mood/affect nml Lab Results 06/17/24 07:07 06/17/24 07:07 Other Labs: Lab Results x24hrs 06/17/24 06/13/24 Range/Units 07:07 20:15 WBC 12.5 H (4.8-10.8) x10^3/uL RBC 3.86 L (4.20-5.40) 10^6/uL Hgb 10.5 L (12.0-16.0) g/dL Hct 32.9 L (37.0-47.0) % MCV 85.2 (81.0-99.0) fL MCH 27.2 (27.0-31.0) pg MCHC 31.9 L (32.0-36.0) g/dL RDW 16.6 H (12.0-15.0) % Plt Count 174 (130-450) 10^3/uL MPV 12.3 H (7.9-10.8) fL Sodium 138 (135-145) mmol/L Potassium 4.1 (3.5-4.5) mmol/L Chloride 109 (101-111) mmol/L Carbon Dioxide 25 (21-32) mmol/L Anion Gap 4.0 L (6-13) BUN 10 (6-20) mg/dL Creatinine 0.7 (0.6-1.3) mg/dL Estimated GFR (MDRD) 99 (>89) Glucose 79 (74-104) mg/dL Calcium 8.5 (8.5-10.3) mg/dL Total Bilirubin 0.2 (0.2-1.0) mg/dL AST 11 (10-42) IU/L ALT 9 L (10-60) IU/L Alkaline Phosphatase 97 (42-121) IU/L Total Protein 5.5 L (6.4-8.9) g/dL Albumin 2.8 L (3.2-5.5) g/dL Globulin 2.7 (2.1-4.2) g/dL Albumin/Globulin Ratio 1.0 (1.0-2.2) Crossmatch IS Only See Detail Assessment/Plan Problem List (1) care following vaginal delivery: Impression: PPD #1 s/p following IOL for GDM A2 and preE. BPs were normal during labor and delivery and have remained normal PP. PreE labs this morning wnl as well. - Cont routine PP care and support. - Anticipate discharge home tomorrow morning once 48 hrs PP. (2) Gestational diabetes mellitus in , insulin controlled: Impression: Anticipate improvement in glucose levels now. Additionally, the tighter antepartum glucose control is not indicated once PP. Insulin discontinued with delivery. Cont with monitoring and lower-carb diet, but may have occasional simple carb treats. Discussed plan for glucose tolerance test at 5-6 wks. 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 (4) Pre-eclampsia in third trimester: Impression: Dx based on elevated BP's at [facility] office during her last visit, associated with urine protein > 300 mg. BPs not elevated in subseqent clinic visit and have been normal since admission. Plan for inpatient stay until 48 hr PP for preE.
--- NOTE | 2024-06-18 07:08 | Discharge Summary ---
"Discharge Summary Admit Date: 06/13/24 Discharge Date: 06/18/24 Discharging Provider: Dr. Lauryn Canales Primary Care Provider: Dr. Ritesh Crews Code Status: Attempt Resuscitation Discharge Facility Name: [facility] DIAGNOSES Admission Diagnoses: 1. Gestational diabetes, A2 2. Possible pre-eclampsia (BP elevation in clinic x 1, proteinuria) 3. at 37+0 wks 4. Lacie's thyroiditis 5. Blood type Rh neg Discharge Diagnoses with Status of Each Condition: 1. , now s/p 2. History gestational diabetes, improving and requiring reassessment 3. Lacie's thyroiditis 4. Blood type Rh neg HPI History of Present Illness: Patient is a 28 yo admitted at 37+0 wks for induction of labor. complicated by above diagnoses. She denies leakage of fluid, vaginal bleeding, contractions, headache, visual changes, or abdominal pain. CONSULTS | PROCEDURES Consultations: None Procedures: 1. 2. Repair of laceration 3. Epidural 4. Induction of labor HOSPITAL COURSE Hospital Course: Patient was admitted to observation for cervical ripening and received 5 doses of misoprostol (25 mcg x 2 and 50 mcg x 3), as well as Cook ripening balloon. She was subsequently admitted to inpatient, and Pitocin started. Glucose levels were managing with titration of Insulin Glargine and Lispro while continuing low-carb diet. After epidural was placed, she was NPO for only a short period, and insulin drip was not required. After amniotomy, labor progressed well, progressing relatively quickly from 6-7 cm to c/c/+1 over 4 hrs. She delivered a healthy male via , weighing 8 lb 0.2 oz and had a second degress laceration that was repaired without complications. , she did very well. Insulin was discontinued. BPs and other vital signs were normal throughout her hospital stay. She was discharged home on PPD #2 ambulating, tolerating a regular diet, and voiding. For contraception, she plans to return to withdrawal method. Reviewed limitations or withdrawal and discussed plan to re-address at 6 wk PP visit. Pt in agreement. ALLERGIES Allergies Allergy/AdvReac Type Severity Reaction Status Date / Time Penicillins Allergy Severe Swelling Verified 06/15/24 09:08 pollen extracts AdvReac Intermediate Itching Verified 06/15/24 09:08 MEDICATIONS Ambulatory Orders Medication Instructions Recorded Confirmed Bacillus coagulans-inulin 1 1 cap PO DAILY 04/11/24 06/14/24 billion cell-250 mg capsule (Probiotic with Prebiotic) levothyroxine 125 mcg capsule 125 mcg PO QDAY 04/11/24 06/14/24 vits no.126-ferrous fum 1 tab PO DAILY 04/11/24 06/14/24 28 mg iron-folic acid 800 mcg tablet (Classic ) acetaminophen 500 mg tablet 1,000 mg (2 x 500 mg) PO Q8HR PRN 06/18/24 Mild Pain Or Fever>38c(100.4f) #60 tabs ibuprofen 200 mg capsule 600 mg (3 x 200 mg) PO Q6HR PRN 06/18/24 Moderate Pain (Level 4-6) #60 caps PHYSICAL EXAM AT DISCHARGE General Appearance: positive No acute distress Eyes Bilateral: positive Normal inspection Neck: positive Nml inspection Respiratory: positive No respiratory distress and Breath sounds nml Cardiovascular: positive Regular rate & rhythm and No murmur Abdomen: positive Non-tender and Other (Fundus firm, nontender at U-2) Skin: positive Color nml Extremities: positive Pedal edema (2+) Neurologic/Psychiatric: positive Oriented x3, Motor nml and Mood/affect nml LABS 06/17/24 07:07 06/17/24 07:07 QUALITY (Female Hip Fx Only) Was patient sent home on osteoporosis medication?: No FOLLOW UP Follow Up: 2 dayd for BP check then 2 wks for BP check and depression screen TIME SPENT Time Spent in Discharge (Minutes): 25 Discharge Plan Discharge Patient Disposition: 01 HECTOR, Self Care Condition: Good Medically Cleared Date:: 06/18/24 Prescriptions: New acetaminophen 500 mg Tablet 1,000 mg PO Q8HR PRN (Reason: Mild Pain Or Fever>38c(100.4f)) Qty: 60 0RF ibuprofen 200 mg capsule 600 mg PO Q6HR PRN (Reason: Moderate Pain (Level 4-6)) Qty: 60 0RF Continued levothyroxine 125 mcg capsule 125 mcg PO QDAY Probiotic with Prebiotic 1 billion-250 cell-mg capsule 1 cap PO DAILY Classic 28 mg iron- 800 mcg tablet 1 tab PO DAILY Discontinued aspirin [Adult Low Dose Aspirin] 81 mg tablet,delayed release (DR/EC) 81 mg PO QDAY insulin lispro [Humalog KwikPen Insulin] 100 unit/mL insulin pen 4 - 6 sliding scale dose subcut USEASDIRECTD Rx Instructions: Inject 4-6 units about 10-15 minutes before eating meals. Increase as instructed. Max TDD 50u. usually taking 15-20 units pre meal insulin glargine [Lantus Solostar U-100 Insulin] 100 unit/mL (3 mL) insulin pen 30 - 80 unit subcut BID Rx Instructions: Taking 80 units in the evening and 30 units in the morning Print Language: Ukrainian Patient Instructions: Vaginal After, Depression Follow-up Care: Ritesh Crews MD [Provider Admit Priv/Credential] -"
[2024-06-18 12:40] VITALS: BP 120/72; TEMP 98.5; O2SAT 97
--- NOTE | 2024-06-18 12:47 | Labor Flowsheet ---
Labor Flowsheet Datetime Report Generated by CPN: 06/18/2024 12:46 Datetime: 06/18/2024 06:54 Pulse: 81 SpO2 (%): 94 Datetime: 06/18/2024 06:49 VITAL SIGNS NBP Sys/Stacia/Mean (mmHg): 125 : 57 : 72 Datetime: 06/16/2024 13:05 Stage of : Recovery Datetime: 06/16/2024 08:45 Comments: FSE removed by MD Datetime: 06/16/2024 08:44 UTERINE ACTIVITY Monitor Mode: External Frequency (min): 1-4 Quality: Strong Duration (sec): 50-100 Pattern: Normal: <= 5 Contractions in 10 Minutes Resting Tone (Palpate): Relaxed ASSESSMENT A Monitor Mode: Internal Scalp Electrode FHR Baseline Rate : 130 Variability: Moderate 6-25 bpm Accelerations: 15X15 Decelerations: Variable; Prolonged Datetime: 06/16/2024 08:29 LaborFlag: Labor Datetime: 06/16/2024 07:50 Monitor Interventions for FHR: FSE Applied Datetime: 06/16/2024 07:40 Communication Comments: md educating and consenting pt for fse placement Datetime: 06/16/2024 07:35 COMMUNICATION Communication: Provider at Bedside Datetime: 06/16/2024 07:02 Respirations: 18 Temperature (C): 36.7 Datetime: 06/16/2024 07:00 Category: Category II PATIENT CARE Oxygen Method: Room Air Datetime: 06/16/2024 06:55 Stage 2 Comments: with tug of war Datetime: 06/16/2024 06:45 Contraction Comments: per pt report Datetime: 06/16/2024 06:36 STAGE 2 Pushing: Coached on Pushing; Urge to Push Pushing Position: Pushing with Contractions; Pushing Left Side Datetime: 06/16/2024 06:30 I/O Interventions: Mora Discontinued Datetime: 06/16/2024 06:17 Provider Notified (Name): Dr. Parker Datetime: 06/16/2024 06:02 VAGINAL EXAM Dilatation (cm): 10.0 Station: -1 Exam by: Sunita Daily RN Datetime: 06/16/2024 05:44 Patient Position/Activity: Left Lateral Patient Care Comments: flying cowgirl Datetime: 06/16/2024 05:20 MEDICATIONS Pitocin (milliunits): Increased to @ 12 Datetime: 06/16/2024 04:15 Monitor Interventions for UA: [place] Adjusted Datetime: 06/16/2024 02:35 Notification Reason: Status Update; Labor Status Datetime: 06/16/2024 02:25 Effacement (%): 90 Datetime: 06/16/2024 01:35 Epidural Procedure: Loading Dose Datetime: 06/16/2024 01:22 Epidural Positioning: Sitting Datetime: 06/16/2024 01:19 PROCEDURE TIME OUT Procedure Verify: Correct Patient Identity; Correct Side and Site are Marked; Accurate Procedure Co nsent Form; Agreement on Procedure to be Done; Correct Patient Position; Relevant Images and Results are Properly Labeled and Displayed; Addressed Need to Administer Antibiotics or Fluids for Irrigation ; Safety Precautions Based on Patient History or Medication Use ANESTHESIA Anesthesia Plans: Epidural Anesthesia Comments: SECTION [employer]ANG [employer]ER at bedside Datetime: 06/16/2024 01:04 Pain Assessment Comments: pt using nitrous oxide gas Datetime: 06/16/2024 00:48 Medication Comments: difficult to trace ctxs consistently Datetime: 06/15/2024 23:48 Pain Presence: Intermittent Pain Type: Contraction Pain Location: Abdomen; Back Pain Relief Measures: Comfort Measures Pain Coping: Breathing Through Contractions; Declines Medication or Epidural Comfort Measures: Breathing/Relaxation; Back Rub Given; Family Support Datetime: 06/15/2024 23:15 Vaginal Bleeding: None Vaginal Exam Comments: pt reports consistent feeling like she needs to poop, pt consented to cervic al check Datetime: 06/15/2024 21:54 Membrane Status: Ruptured Membranes Rupture Method: Artificial Amniotic Fluid Color: Clear Amniotic Fluid Amount: Moderate Amniotic Fluid Odor: Normal Membrane Comments: by Dr. Canales Datetime: 06/15/2024 19:16 MATERNAL ASSESSMENT Level of Consciousness: Alert DTR's/Clonus: DTRs 2+; No Clonus Headache: Denies Breath Sounds, Left: Clear and Equal Breath Sounds, Right: Clear and Equal Nausea/Vomiting: Denies RUQ Epigastric Pain: Denies Datetime: 06/15/2024 18:15 FHR Baseline Changes: No Baseline Change Datetime: 06/15/2024 16:31 Temperature Route: Oral Datetime: 06/15/2024 13:01 PAIN Pain Scale: 0 Datetime: 06/15/2024 12:05 Insulin: Reg Insulin Subcutaneous (Units) @ 20 Datetime: 06/15/2024 10:59 Membranes Ruptured Date/Time: 06/15/2024 21:54 Datetime: 06/15/2024 10:12 Cervical Ripening Agents: Mora Balloon; Cytotec @ Datetime: 06/15/2024 01:32 Cervix, Consistency: Soft Cervix, Position: Posterior Datetime: 06/13/2024 21:20 PRE-INDUCTION CHECKLIST Orders on Chart: Yes H Record Available: Yes Indication Charted: Yes Adequate Pelvis Charted: Yes EFW Documented: Yes Gestational Age Documented: Yes Consent Signed and on Chart: Yes Provider with C/S Priv Aware: Yes Status of Cervix Documented: Yes Presentation Documented: Yes 30min of Monitoring Prior: Yes 2 Accels of 15X15 Present: Yes No Late Decels Present: Yes Less than 2 Variable Decels: Yes Pt Meets Criteria for Induction: Yes Datetime: 06/13/2024 21:16 Lie 'A': Longitudinal
== END 2024-06-18 11:30 | disposition home or self-care (01) | DRG 807 ==
LOC: FBP 19:54 → WFO 19:54 → FBP 19:57
PROVIDERS: ADMIT Obstetrics & Gynecology; ATTEND Obstetrics & Gynecology
DX: O99.214 Obesity complicating childbirth; O24.424 Gestational diabetes mellitus in childbirth, insulin controlled; E66.813 Obesity, class 3; O70.1 Second degree perineal laceration during delivery; Z37.0 Single live birth; Z79.82 Long term (current) use of aspirin; Z67.11 Type A blood, Rh negative; Z3A.37 37 weeks gestation of pregnancy; O99.284 Endocrine, nutritional and metabolic diseases complicating childbirth; O26.893 Other specified pregnancy related conditions, third trimester; E06.3 Autoimmune thyroiditis